=== PATIENT | male | born 1955 | race Caucasian/White ===

== ENCOUNTER → 2017-10-03 | Outpatient (CLI) | payer OTHER ==
[~2017-10-03] MED LIST: LOMOTIL 0.025 M1 TA1 PO; PHENERGAN25 MG RC; VICODIN 5/500 505 MG PO
[2017-10-03 12:32] LABS: HEMATOCRIT 37.9 % (42.0-52.0); HEMOGLOBIN 13.2 g/dl (14.0-18.0); MEAN CELL VOLUME 91.1 fl (80.0-94.0); MEAN CORPUSCULAR HGB 31.7 pg (27.0-31.0); MEAN CORPUSCULAR HGB CONC 34.8 g/dl (33.0-37.0); MEAN PLATELET VOLUME 10.2 fl (9.6-12.3); RED BLOOD COUNT 4.16 10*6/uL (4.50-5.90); RED CELL DISTRI WIDTH 13.4 % (0-14.5); WHITE BLOOD COUNT 7.6 10*3/uL (4.8-10.8)
[2017-10-03 13:01] LABS: ALBUMIN 3.8 gm/dl (3.1-4.5); ALKALINE PHOSPHATASE 149 U/L (45-117); BUN 15 mg/dl (7-24); CHLORIDE 103 mmol/L (98-107); CHOLESTEROL 132 mg/dL (<200); CPK 147 U/L (39-308); CREATININE 1.16 mg/dL (0.70-1.30); HDL CHOLESTEROL 31 mg/dl (40-60); LDL CHOLESTEROL 52 mg/dL (9-159); POTASSIUM 4.7 mmol/L (3.5-5.1); SGOT/AST 11 IU/L (3-35); SGPT/ALT 20 U/L (12-78); SODIUM 137 mmol/L (136-145); TOTAL PROTEIN 7.3 gm/dL (6.4-8.2); TRIGLYCERIDES 244 mg/dl (<150); VLDL CHOLESTEROL 49 mg/dL (6-40)
[2017-10-03 13:20] LABS: VITAMIN D, 25-HYDROXY 17.7 ng/mL (30-100)
== END | disposition home or self-care (01) ==
LOC: LAB 12:07
PROVIDERS: Family Medicine
DX: Z12.5 Encounter for screening for malignant neoplasm of prostate (principal); J44.9 Chronic obstructive pulmonary disease, unspecified; E11.9 Type 2 diabetes mellitus without complications; E55.9 Vitamin D deficiency, unspecified; I10 Essential (primary) hypertension; E78.00 Pure hypercholesterolemia, unspecified; F17.200 Nicotine dependence, unspecified, uncomplicated

== ENCOUNTER → 2018-03-06 | Outpatient (CLI) | payer OTHER ==
[2018-03-06 14:39] LABS: HEMATOCRIT 38.1 % (42.0-52.0); HEMOGLOBIN 12.3 g/dl (14.0-18.0); MEAN CELL VOLUME 96.9 fl (80.0-94.0); MEAN CORPUSCULAR HGB 31.3 pg (27.0-31.0); MEAN CORPUSCULAR HGB CONC 32.3 g/dl (33.0-37.0); MEAN PLATELET VOLUME 10.6 fl (9.6-12.3); RED BLOOD COUNT 3.93 10*6/uL (4.50-5.90); RED CELL DISTRI WIDTH 13.9 % (0-14.5); WHITE BLOOD COUNT 6.8 10*3/uL (4.8-10.8)
[2018-03-06 15:02] LABS: BUN 20 mg/dl (7-24); CHLORIDE 107 mmol/L (98-107); CHOLESTEROL 177 mg/dL (<200); CREATININE 1.32 mg/dL (0.70-1.30); HDL CHOLESTEROL 23 mg/dl (40-60); POTASSIUM 4.5 mmol/L (3.5-5.1); SGOT/AST 12 IU/L (3-35); SGPT/ALT 15 U/L (12-78); SODIUM 140 mmol/L (136-145); TOTAL PROTEIN 7.3 gm/dL (6.4-8.2); TRIGLYCERIDES 486 mg/dl (<150)
[2018-03-06 15:04] LABS: ALKALINE PHOSPHATASE 118 U/L (45-117)
== END | disposition home or self-care (01) ==
LOC: LAB 13:35
PROVIDERS: Family Medicine
DX: E78.00 Pure hypercholesterolemia, unspecified (principal); E11.9 Type 2 diabetes mellitus without complications; I10 Essential (primary) hypertension; E55.9 Vitamin D deficiency, unspecified

== ENCOUNTER → 2018-03-20 | Outpatient (CLI) | payer OTHER | END | disposition home or self-care (01) | LOC: LAB 10:41 | PROVIDERS: Family Medicine | DX: T14.8XXA Other injury of unspecified body region, initial encounter (principal); W57.XXXA Bitten or stung by nonvenomous insect and other nonvenomous arthropods, initial encounter; Y93.89 Activity, other specified; Y92.89 Other specified places as the place of occurrence of the external cause; Y99.8 Other external cause status ==

== ENCOUNTER → 2018-07-24 | Outpatient (CLI) | payer OTHER ==
[2018-07-24 09:58] LABS: HEMATOCRIT 35.4 % (42.0-52.0); HEMOGLOBIN 11.3 g/dl (14.0-18.0); MEAN CELL VOLUME 98.3 fl (80.0-94.0); MEAN CORPUSCULAR HGB 31.4 pg (27.0-31.0); MEAN CORPUSCULAR HGB CONC 31.9 g/dl (33.0-37.0); MEAN PLATELET VOLUME 9.9 fl (9.6-12.3); RED BLOOD COUNT 3.6 10*6/uL (4.50-5.90); RED CELL DISTRI WIDTH 13.9 % (0-14.5); WHITE BLOOD COUNT 6.6 10*3/uL (4.8-10.8)
[2018-07-24 10:27] LABS: ALBUMIN 3.7 gm/dl (3.1-4.5); ALKALINE PHOSPHATASE 125 U/L (45-117); BUN 21 mg/dl (7-24); CHLORIDE 108 mmol/L (98-107); CHOLESTEROL 161 mg/dL (<200); CPK 199 U/L (39-308); CREATININE 1.37 mg/dL (0.70-1.30); HDL CHOLESTEROL 25 mg/dl (40-60); LDL CHOLESTEROL 92 mg/dL (9-159); POTASSIUM 4.5 mmol/L (3.5-5.1); SGOT/AST 15 IU/L (3-35); SGPT/ALT 18 U/L (12-78); SODIUM 142 mmol/L (136-145); TOTAL PROTEIN 7.3 gm/dL (6.4-8.2); TRIGLYCERIDES 218 mg/dl (<150); VLDL CHOLESTEROL 44 mg/dL (6-40)
== END | disposition home or self-care (01) ==
LOC: LAB 09:38
PROVIDERS: Family Medicine
DX: I10 Essential (primary) hypertension (principal); E78.00 Pure hypercholesterolemia, unspecified; E03.9 Hypothyroidism, unspecified; M19.90 Unspecified osteoarthritis, unspecified site; F41.1 Generalized anxiety disorder; E74.00 Glycogen storage disease, unspecified

== ENCOUNTER → 2018-10-31 | Outpatient (CLI) | payer OTHER ==
[2018-11-01 09:07] LABS: RHEUMATOID ARTHRITIS FACTOR 10.2 IU/mL (0.0-13.9)
== END | disposition home or self-care (01) ==
LOC: LAB 12:01
PROVIDERS: Family Medicine
DX: M19.90 Unspecified osteoarthritis, unspecified site (principal); E78.00 Pure hypercholesterolemia, unspecified

== ENCOUNTER → 2019-01-15 | Outpatient (CLI) | payer OTHER ==
[2019-01-15 12:21] LABS: MEAN CORPUSCULAR HGB 32.4 pg (27.0-31.0); MEAN CORPUSCULAR HGB CONC 32.4 g/dl (33.0-37.0); MEAN PLATELET VOLUME 10.9 fl (9.6-12.3); RED BLOOD COUNT 3.4 10*6/uL (4.50-5.90); RED CELL DISTRI WIDTH 13.5 % (0-14.5); WHITE BLOOD COUNT 7.2 10*3/uL (4.8-10.8)
[2019-01-15 12:37] LABS: ALBUMIN 3.7 gm/dl (3.1-4.5); CREATININE 1.57 mg/dL (0.70-1.30); POTASSIUM 4.9 mmol/L (3.5-5.1)
== END | disposition home or self-care (01) ==
LOC: LAB 11:13
PROVIDERS: Family Medicine
DX: E78.00 Pure hypercholesterolemia, unspecified (principal); E11.9 Type 2 diabetes mellitus without complications; I10 Essential (primary) hypertension; E55.9 Vitamin D deficiency, unspecified; M19.90 Unspecified osteoarthritis, unspecified site

== ENCOUNTER 2019-05-28 10:49 | Inpatient (IN) | payer OTHER ==
[2019-05-28] VITALS (8 sets, daily range): BP systolic 111–159; BP diastolic 57–73
[~2019-05-28] VITALS: Ht 182.8 cm; Wt 116.4 kg
[2019-05-28 11:11] LABS: BASO # 0.1 10*3/uL (0.0-0.1); BASO % 0.8 % (0.0-1.0); EOS # 0.1 10*3/uL (0.0-0.4); EOS % 1.9 % (1.0-4.0); HEMATOCRIT 33.8 % (42.0-52.0); HEMOGLOBIN 11.1 g/dl (14.0-18.0); LYMPH # 2.3 10*3/uL (1.3-4.4); LYMPH % 31.7 % (27.0-41.0); MEAN CELL VOLUME 99.1 fl (80.0-94.0); MEAN CORPUSCULAR HGB 32.6 pg (27.0-31.0); MEAN CORPUSCULAR HGB CONC 32.8 g/dl (33.0-37.0); MEAN PLATELET VOLUME 11.2 fl (9.6-12.3); MONO # 0.7 10*3/uL (0.1-1.0); NEUT # 4.1 10*3/uL (2.3-7.9); NEUT % 56.1 % (47.0-73.0); PLATELET COUNT AUTOMATED 152 10*3/uL (130-400); RED BLOOD COUNT 3.41 10*6/uL (4.50-5.90); WHITE BLOOD COUNT 7.4 10*3/uL (4.8-10.8)
[2019-05-28 11:27] LABS: ACT PARTIAL THROMBO TIME 25.3 SECONDS (20.0-32.1); INTERNATIONAL NORM RATIO 0.9 (2.0-3.5)
[2019-05-28 11:29] LABS: ALBUMIN 4.1 gm/dl (3.1-4.5); ALKALINE PHOSPHATASE 121 U/L (45-117); BUN 27 mg/dl (7-24); CHLORIDE 109 mmol/L (98-107); CREATININE 1.57 mg/dL (0.70-1.30); POTASSIUM 4.1 mmol/L (3.5-5.1); SGOT/AST 12 IU/L (3-35); SGPT/ALT 18 U/L (12-78); SODIUM 138 mmol/L (136-145); TOTAL PROTEIN 7.4 gm/dL (6.4-8.2)
[2019-05-28 11:30] LABS: TROPONIN I < 0.015 ng/ml (<0.045)
--- NOTE | 2019-05-28 14:14 | NUR ---
A 63, admitted to , under the services of Dr. BETHANY CESPEDES,N[place] Silverman with a diagnosis of CHEST PAIN. Chief complaint is CHEST PAIN FOR 2 DAYS BUT NONE TODAY & MAINLY FEELING TIRED. WORKED UNTIL 11PM LAST NIGHT & STAYED UP UNTIL 3AM, HAS BEEN BOUNCING SHIFTS AT WORK. ALSO HAS C/O UPPER QUAD CRAMPS THAT COME ON WITH MOVEMENT. . Patient arrived via stretcher from ER. Monitor applied. Initial assessment completed. Vital signs taken and recorded. DR. BETHANY CESPEDES,N[place] Silverman notified of admission to the unit. Orders received. See assessment for past medical history, medications and allergies. Patient and/or family oriented to unit. [facility] visitation policy reviewed. Clothing/patient valuable form completed. LESLIE IVAN
[2019-05-28] MEDS ORDERED: NOVOLIN 70100 UNIT/2 SQ ×2 (14:28→14:29)
[2019-05-28] MEDS ORDERED: NEURONTIN300 MG PO (14:30)
[2019-05-28] MEDS ORDERED: ZESTORETIC 20-1 EACH PO (14:31)
[2019-05-28] MEDS ORDERED: ZYLOPRIM100 MG PO (14:32)
[2019-05-28] MEDS ORDERED: OMEPRAZOLE40 MG PO (14:33)
[2019-05-28] MEDS ORDERED: TOPROL XL50 M1 PO (14:34)
[2019-05-28] MEDS ORDERED: CITALOPRAM20 MG PO (14:35)
[2019-05-28] MEDS ORDERED: TOPAMAX50 MG PO (14:36)
[2019-05-28] MEDS ORDERED: COREG3.125 MG PO (15:08)
[2019-05-28] MEDS ORDERED: VITAMIN D-32000 UNI1 PO (15:10)
[2019-05-28] MEDS ORDERED: ASPIRIN CHEWABL81 MG PO (15:11)
--- NOTE | 2019-05-28 15:11 | NUR ---
MEDS VERIFIED VIA PHARMACY & WITH AFTER GOING THROUGH IT WITH PATIENT
--- NOTE | 2019-05-28 15:30 | NUR ---
DR SIMS CALLED WITH ADMISSION ASSESSMENT - ORDERS RECEIVED
[2019-05-29] VITALS: BP 152/61
--- NOTE | 2019-05-29 03:50 | NUR ---
PT LYING IN BED, EYES CLOSED AND SLEEPING. RESPIRATIONS EASY AND UNLABORED. SAFETY MEASURES IN PLACE, CALL LIGHT IN REACH.
[2019-05-29 06:09] LABS: BASO % 0.5 % (0.0-1.0); EOS # 0.2 10*3/uL (0.0-0.4); EOS % 2.3 % (1.0-4.0); HEMOGLOBIN 11.3 g/dl (14.0-18.0); LYMPH # 2.3 10*3/uL (1.3-4.4); LYMPH % 30.9 % (27.0-41.0); MEAN CELL VOLUME 99.7 fl (80.0-94.0); MEAN CORPUSCULAR HGB 32.2 pg (27.0-31.0); MEAN CORPUSCULAR HGB CONC 32.3 g/dl (33.0-37.0); MONO # 0.6 10*3/uL (0.1-1.0); MONO % 7.8 % (3.0-9.0); NEUT # 4.3 10*3/uL (2.3-7.9); NEUT % 58.1 % (47.0-73.0); PLATELET COUNT AUTOMATED 158 10*3/uL (130-400); RED BLOOD COUNT 3.51 10*6/uL (4.50-5.90); RED CELL DISTRI WIDTH 13.9 % (0-14.5); WHITE BLOOD COUNT 7.4 10*3/uL (4.8-10.8)
[2019-05-29 06:30] LABS: CREATININE 1.45 mg/dL (0.70-1.30); POTASSIUM 4.7 mmol/L (3.5-5.1)
--- NOTE | 2019-05-29 09:00 | NUR ---
PATIENT ASSESSMENT COMPLETE AT THIS TIME. PT DENIES ANY SOB OR CHEST PAIN. BLOOD PRESSURE WNL. NO NEW ABNORMALITIES NOTED. WILL CATCH PATIENT UP ON MEDICATIONS WHEN HE RETURNS TO FLOOR FROM STRESS TEST. PT DENIES NEEDING ANYTHING AT THIS TIME. ALL SAFETY MEASURES IN PLACE. CALL LIGHT IN REACH.
[2019-05-29 09:07] VITALS: BP 122/58
--- NOTE | 2019-05-29 09:30 | NUR ---
INFORMED CONSENT OBTAINED FOR A LEXISCAN STRESS TEST WITH DR. SIMS. RESTING EKG NSR, WITH A HT RT OF 77 AND A BP OF 120/68. CLEAR BREAH SOUNDS, POX 96% REYNA. COMPLETED ONE MINUTE OF A LEXISCAN PROTOCOL RECEIVING LEXISCAN 0.4 MG OVER 10 SECONDS. NO SYMPTOMS VOICED. TOLERATED WELL. HAD A PEAK HT RT OF 84, WITH A BP OF 112/50. LAST RECOVERY HT RT OF 86, WITH A BP OF 118/54. AWAITING NUCLEAR IMAGING IN STABLE CONDITION.
--- NOTE | 2019-05-29 09:40 | NUR ---
PATIENT OFF OF FLOOR AT THIS TIME FOR STRESS TEST.
[2019-05-29] MEDS ORDERED: ROPINIROLE HYD0.5 MG PO (10:26)
[2019-05-29 11:43] VITALS: BP 142/60
[2019-05-29 12:00] VITALS: BP 125/57
--- NOTE | 2019-05-29 12:00 | NUR ---
Spray Unit Feeder in to talk to patient. Patient states lives at home with his . There are 2 steps in the home. Physician: Dr. Lenny Gonsales [facility]acy: [facility] Home health services: none Patient's level of ADLs: INDEPENDENT Patient has working utilities: yes DME: none Follow-up physician's appointment after d/c: he prefers to make his own follow up appt after discharge Does patient want to access PORTAL?: no Discharge plan discussed with patient and who is at the bedside. He lives at home with his . He is independent in his ADLs and ambulation. Discussed home health care services and he denies any home needs at this time. When medically stable he will be discharged to home. ANA EDMONDS
--- NOTE | 2019-05-29 14:00 | NUR ---
CALLED [facility] FOR UPDATES ON PATIENT'S STRESS TEST RESULTS. STRESS TEST HAS NOT BEEN READ YET BY DR LINDO.
--- NOTE | 2019-05-29 15:45 | NUR ---
PT COMES TO NURSE STATION AND STATES THAT PATIENT IS READY TO GO AND NEEDS HIS IV TAKEN OUT. PT IS NOTIFIED THAT I AM GOING TO CALL DR SIMS TO ASK IF PATIENT CAN BE PROPERLY DISCHARGED RATHER THAN LEAVE AGAINST MEDICAL ADVICE. PT SAYS OKAY AND GOES BACK TO PATIENT'S ROOM.
--- NOTE | 2019-05-29 15:50 | NUR ---
DR SIMS NOTIFIED THAT PATIENT WANTS TO LEAVE AND GIVES ORDERS TO CALL DR LINDO AND ASK HIM TO READ STRESS REPORT SO THAT PATIENT CAN BE DISCHARGED HOME. DR LINDO NOTIFIED AND STATES THAT HE WILL READ STRESS TEST AND HAVE REPORT READY IN 5-10 MINUTES. WILL NOTIFY PATIENT.
[2019-05-29 16:00] VITALS: BP 130/58
--- NOTE | 2019-05-29 16:02 | NUR ---
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 IT APPEARS THAT PATIENT HAS LEFT FACILITY WITHOUT SIGNING PROPER PAPERWORK. TRASH CANS ARE SEARCHED FOR PATIENT'S IV CATHETER BUT CATHETER IS NOT FOUND. INPATIENT DIRECTOR AND NURSING ROPE TOW OPERATOR NOTIFIED. AN ATTEMPT IS MADE TO TRY TO CONTACT PATIENT TO ASK IF IV CATHETER HAS BEEN PROPERLY REMOVED BUT NO THERE IS NO ANSWER. WILL FOLLOW UP WITH APPROPRIATE ACTIONS PER POLICY.
--- NOTE | 2019-05-29 16:28 | NUR ---
NOTIFIED [place] [employer] THAT PATIENT HAS LEFT FACILITY WITH IV ACCESS.
--- NOTE | 2019-05-29 16:36 | NUR ---
PT HAS LEFT AGAINST MEDICAL ADVICE AND WITHOUT SIGNING APPROPRIATE PAPERWORK.
== END 2019-05-29 16:36 | disposition left against medical advice (07) | DRG 392 ==
LOC: ED 10:49 → 5E 14:00 → EDHOLD 14:00 → 5E 14:01
PROVIDERS: Emergency Medicine; ADMIT Internal Medicine
PROC: 4A02XM4 Measurement of Cardiac Total Activity, External Approach (ICD-10-PCS; principal; 2019-05-29)
PROC: 3E073KZ Introduction of Other Diagnostic Substance into Coronary Artery, Percutaneous Approach (ICD-10-PCS; 2019-05-29)
DX: K21.0 Gastro-esophageal reflux disease with esophagitis (principal); F33.0 Major depressive disorder, recurrent, mild; R07.89 Other chest pain; I10 Essential (primary) hypertension; M1A.9XX0 Chronic gout, unspecified, without tophus (tophi); Z53.21 Procedure and treatment not carried out due to patient leaving prior to being seen by health care provider; E11.9 Type 2 diabetes mellitus without complications; E66.9 Obesity, unspecified; Z87.11 Personal history of peptic ulcer disease; Z68.35 Body mass index [BMI] 35.0-35.9, adult

== ENCOUNTER 2019-07-19 18:18 | Emergency (ER) | payer OTHER ==
[~2019-07-19] VITALS: Ht 182.8 cm; Wt 108.9 kg
[~2019-07-19 18:18] MED LIST changes: +ASPIRIN CHEWABL81 MG PO; +CITALOPRAM20 MG PO; +COREG3.125 MG PO; +NEURONTIN300 MG PO; +NOVOLIN 70100 UNIT/2 SQ; +OMEPRAZOLE40 MG PO; +ROPINIROLE HYD0.5 MG PO; +TOPAMAX50 MG PO; +TOPROL XL50 M1 PO; +VITAMIN D-32000 UNI1 PO; +ZESTORETIC 20-1 EACH PO; +ZYLOPRIM100 MG PO
[2019-07-19] MEDS ORDERED: NORCO 5-325 TA1 EACH PO (19:33)
== END 2019-07-19 20:00 | disposition home or self-care (01) ==
LOC: ED 18:18
DX: S82.832A Other fracture of upper and lower end of left fibula, initial encounter for closed fracture (principal); E11.9 Type 2 diabetes mellitus without complications; I10 Essential (primary) hypertension; K21.9 Gastro-esophageal reflux disease without esophagitis; M79.671 Pain in right foot; Z79.899 Other long term (current) drug therapy; Z79.82 Long term (current) use of aspirin; Z79.4 Long term (current) use of insulin; X50.1XXA Overexertion from prolonged static or awkward postures, initial encounter; Y93.89 Activity, other specified; Y92.89 Other specified places as the place of occurrence of the external cause; Y99.0 Civilian activity done for income or pay

== ENCOUNTER → 2019-07-22 | Outpatient (CLI) | payer OTHER ==
[~2019-07-22] MED LIST changes: +CARAFATE1 G1 PO; +NORCO 5-325 TA1 EACH PO
== END | disposition home or self-care (01) ==
LOC: US 12:59
DX: R60.0 Localized edema (principal)

== ENCOUNTER 2019-07-26 12:46 | Inpatient (IN) | payer OTHER ==
[~2019-07-26] VITALS: Ht 182.8 cm; Wt 112.2 kg
[~2019-07-26 12:46] MED LIST changes: -CARAFATE1 G1 PO
[2019-07-26 12:48] VITALS: BP 190/80
[2019-07-26 13:23] LABS: BASO % 0.3 % (0.0-1.0); HEMATOCRIT 34.6 % (42.0-52.0); HEMOGLOBIN 11.7 g/dl (14.0-18.0); LYMPH # 1.4 10*3/uL (1.3-4.4); LYMPH % 15.9 % (27.0-41.0); MEAN CELL VOLUME 95.3 fl (80.0-94.0); MEAN CORPUSCULAR HGB 32.2 pg (27.0-31.0); MEAN CORPUSCULAR HGB CONC 33.8 g/dl (33.0-37.0); MEAN PLATELET VOLUME 10.7 fl (9.6-12.3); MONO # 0.5 10*3/uL (0.1-1.0); MONO % 5.8 % (3.0-9.0); NEUT # 6.9 10*3/uL (2.3-7.9); NEUT % 77.6 % (47.0-73.0); PLATELET COUNT AUTOMATED 286 10*3/uL (130-400); RED BLOOD COUNT 3.63 10*6/uL (4.50-5.90); RED CELL DISTRI WIDTH 13.6 % (0-14.5); WHITE BLOOD COUNT 8.9 10*3/uL (4.8-10.8)
--- NOTE | 2019-07-26 13:41 | NUR ---
NOTIFIED BY LAB PTSD LACTIC ACID 2.6. [place] DNP NOTIFIED.
[2019-07-26 13:44] LABS: ALBUMIN 3.8 gm/dl (3.1-4.5); CREATININE 1.72 mg/dL (0.70-1.30); POTASSIUM 4.6 mmol/L (3.5-5.1); TOTAL PROTEIN 7.5 gm/dL (6.4-8.2)
[2019-07-26 13:48] LABS: TROPONIN I 0.11 ng/ml (<0.045)
[2019-07-26 13:58] LABS: ACT PARTIAL THROMBO TIME 22.1 SECONDS (20.0-32.1)
--- NOTE | 2019-07-26 13:58 | NUR ---
PT STATES NAUSEA HAS RESOLVED.
[2019-07-26 14:26] VITALS: BP 186/80
[2019-07-26 15:16] VITALS: BP 184/78
[2019-07-26 15:40] VITALS: BP 188/88
[2019-07-26 16:00] VITALS: BP 190/84
--- NOTE | 2019-07-26 17:44 | NUR ---
DR. DE LEON NOTIFIED OF CONSULT
--- NOTE | 2019-07-26 17:44 | NUR ---
DR. XIAO NOTIFIED OF CONSULT
[2019-07-26] MEDS ORDERED: CARAFATE1 G1 PO ×2 (17:49)
[2019-07-26 20:00] VITALS: BP 137/69
--- NOTE | 2019-07-26 21:15 | NUR ---
NOTIFIED DR REED OF TROPONIN OF 0.171. STATED TO LET CARDIOLOGY KNOW.
--- NOTE | 2019-07-26 21:18 | NUR ---
NOTIFIED DR DE LEON OF TROPONIN RESULT. NO NEW ORDERS RECIEVED AT THIS TIME.
--- NOTE | 2019-07-26 21:59 | NUR ---
HEPARIN DRIP INCREASED 2 UNITS/KG/H. RUNNING AT 12ML/H. APTT WAS 30.2
[2019-07-27] VITALS: BP 145/66
--- NOTE | 2019-07-27 00:43 | NUR ---
PATIENT COMPLAINS OF 8/10 FOOT PAIN. MEDICATED PER ORDER. WILL CONTINUE TO MONITOR FOR RELIEF. VOICES NO OTHER CONCERNS AT THIS TIME. RESTING IN BED. CALL LIGHT WITHIN REACH
--- NOTE | 2019-07-27 00:52 | NUR ---
24 HR chart check completed.
--- NOTE | 2019-07-27 01:12 | NUR ---
DILAUDID EFFECTIVE PER PT
[2019-07-27 04:04] LABS: BASO % 0.3 % (0.0-1.0); EOS # 0.1 10*3/uL (0.0-0.4); EOS % 0.9 % (1.0-4.0); HEMATOCRIT 28.7 % (42.0-52.0); HEMOGLOBIN 9.5 g/dl (14.0-18.0); LYMPH # 3.2 10*3/uL (1.3-4.4); LYMPH % 33.1 % (27.0-41.0); MEAN CORPUSCULAR HGB 32.1 pg (27.0-31.0); MEAN CORPUSCULAR HGB CONC 33.1 g/dl (33.0-37.0); MEAN PLATELET VOLUME 9.9 fl (9.6-12.3); MONO # 0.7 10*3/uL (0.1-1.0); MONO % 7.6 % (3.0-9.0); NEUT # 5.5 10*3/uL (2.3-7.9); NEUT % 57.7 % (47.0-73.0); PLATELET COUNT AUTOMATED 232 10*3/uL (130-400); RED BLOOD COUNT 2.96 10*6/uL (4.50-5.90); RED CELL DISTRI WIDTH 13.5 % (0-14.5); WHITE BLOOD COUNT 9.6 10*3/uL (4.8-10.8)
--- NOTE | 2019-07-27 04:23 | NUR ---
APTT 30.2. HEPARIN ADJUSTED ACCORDINGLY
--- NOTE | 2019-07-27 06:49 | NUR ---
PT COMPLAINS OF 8/10 FOOT PAIN. MEDICATED PER ORDER. WILL MONITOR FOR RELIEF. VOICES NO OTHER CONCERNS AT THIS TIME. RESTING IN BED. CALL LIGHT WITHIN REACH
[2019-07-27 08:00] VITALS: BP 140/62
--- NOTE | 2019-07-27 08:33 | NUR ---
PT RESTING IN BED. NO DISTRESS NOTED. WILL MONITOR
[2019-07-27 12:00] VITALS: BP 118/64
[2019-07-27 12:06] LABS: BILIRUBIN NEGATIVE (NEGATIVE); BLOOD TRACE-INTACT (NEGATIVE); CLARITY SL CLOUDY (CLEAR); COLOR YELLOW (YELLOW); GLUCOSE NEGATIVE (NEGATIVE); KETONE NEGATIVE (NEGATIVE); LEUKO ESTERASE NEGATIVE (NEGATIVE); NITRITE NEGATIVE (NEGATIVE); SPECIFIC GRAVITY 1.025 (1.005-1.030); UROBILINOGEN 0.2 E.U./dl (0.2-1.0)
[2019-07-27 12:17] LABS: BACTERIA 3+
--- NOTE | 2019-07-27 13:16 | NUR ---
DILAUDID GIVEN REQUESTED BY PT. PT RATES LE PAIN 04/19 WILL MONITOR
[2019-07-27 16:00] VITALS: BP 125/62
--- NOTE | 2019-07-27 16:09 | NUR ---
PT STATES THAT ELOY HELPED WILL MONITOR
[2019-07-27 17:18] LABS: CREATININE 1.56 mg/dL (0.70-1.30); POTASSIUM 4.2 mmol/L (3.5-5.1)
[2019-07-27 20:00] VITALS: BP 138/73
--- NOTE | 2019-07-27 20:10 | NUR ---
PT COMPLAINS OF PAIN. MEDICATED PER ORDER. WILL CONTINUE TO MONITOR FOR RELIEF. VOICES NO OTHER CONCERNS AT THIS TIME. RESTING IN BED. CALL LIGHT WITHIN REACH
--- NOTE | 2019-07-27 20:40 | NUR ---
Hep Locks discontinued. Sites asymptomatic. Pressure applied. Sterile dressings applied. LISA MACHADO
--- NOTE | 2019-07-27 20:40 | NUR ---
IV started left forearm with #22 protective cath after 1 attempts. Site prepped with Chloroprep. Sterile dressing applied. Patient tolerated procedure well. LISA MACHADO
--- NOTE | 2019-07-27 21:52 | NUR ---
DILAUDID EFFECTIVE PER PT
--- NOTE | 2019-07-27 21:55 | NUR ---
PT COMPLAING OF 5/10 ACHING CHEST PAIN THAT DOES NOT RADIATE AFTER MAGNESIUM SULFATE IV ADMINISTRATION. WILL NOTIFY DR REED.
--- NOTE | 2019-07-27 22:03 | NUR ---
NOTFIFED DR REED. STATED TO ORDER MAGNESIUM OXIDE 400MG PO BID.
--- NOTE | 2019-07-27 23:00 | NUR ---
PATIENT CURRENTLY DENIES ANY FURTHER EPISODES OF CHEST DISCOMFORT. STATED THE MEDICINE DR REED ORDERED "HELPED ALOT AND THE BURNING FEELING IS ALL GONE". WILL CONTINUE TO MONITOR.
--- NOTE | 2019-07-27 23:01 | NUR ---
24 HR chart check completed.
[2019-07-28] VITALS (7 sets, daily range): BP systolic 116–153; BP diastolic 46–78
--- NOTE | 2019-07-28 00:45 | NUR ---
Patient resting quietly with no c/o discomfort. Respirations easy and regular. Vital signs stable. No overt distress. States he no longer has any chest discomfort. Call light within reach. HISADM,LISA
--- NOTE | 2019-07-28 04:08 | NUR ---
Patient sleeping. Respirations relaxed and easy. Siderails up . [place] on. CALL LIGHT WITHIN REACH HISSOM,LISA
--- NOTE | 2019-07-28 06:19 | NUR ---
BLOOD SUGAR 128
--- NOTE | 2019-07-28 08:21 | NUR ---
OFFICE NOTIFIED OF CONSULT.
--- NOTE | 2019-07-28 08:36 | NUR ---
PT REQUESTED AND RECEIVED IV DILAUDID SLOWLY PER PRN ORDER FOR C/O LEFT FOOT PAIN. RATES PAIN 03/19. WILL MONITOR EFFECTIVENESS. VSS. CALL LIGHT WITHIN REACH.
--- NOTE | 2019-07-28 08:40 | NUR ---
IN TO SEE PATIENT.
--- NOTE | 2019-07-28 09:15 | NUR ---
PAIN BEING SLIGHTLY RELIEVED PER PT. WILL CONTINUE TO MONITOR.
[2019-07-28 09:42] LABS: BASO % 0.4 % (0.0-1.0); EOS # 0.2 10*3/uL (0.0-0.4); EOS % 2.2 % (1.0-4.0); HEMATOCRIT 29.8 % (42.0-52.0); HEMOGLOBIN 9.9 g/dl (14.0-18.0); LYMPH % 26.7 % (27.0-41.0); MEAN CELL VOLUME 96.1 fl (80.0-94.0); MEAN CORPUSCULAR HGB 31.9 pg (27.0-31.0); MEAN CORPUSCULAR HGB CONC 33.2 g/dl (33.0-37.0); MEAN PLATELET VOLUME 9.8 fl (9.6-12.3); MONO # 0.6 10*3/uL (0.1-1.0); MONO % 8.3 % (3.0-9.0); NEUT # 4.6 10*3/uL (2.3-7.9); PLATELET COUNT AUTOMATED 252 10*3/uL (130-400); RED CELL DISTRI WIDTH 13.6 % (0-14.5); WHITE BLOOD COUNT 7.3 10*3/uL (4.8-10.8)
[2019-07-28 10:07] LABS: BUN 21 mg/dl (7-24); CHLORIDE 108 mmol/L (98-107); POTASSIUM 4.1 mmol/L (3.5-5.1); SODIUM 140 mmol/L (136-145)
[2019-07-28 10:10] LABS: CREATININE 1.33 mg/dL (0.70-1.30)
--- NOTE | 2019-07-28 10:30 | NUR ---
Machine Preservative Filler in to talk to patient. Patient states lives at home with his . There are 2 steps in the home. Physician: Dr. Lenny Gonsales [facility] [place] Home health services: none Patient's level of ADLs: MINIMAL ASSIST Patient has working utilities: yes DME: crutches Follow-up physician's appointment after d/c: he prefers to make his own follow up apt after discharge Does patient want to access PORTAL?: no Discharge plan discussed with patient. He lives at home with his . He is independent in his ADLs and uses crutches for ambulation. Discussed home health care services and he denies any home needs at this time. He states the plan is to transfer him to [place] in the morning for a heart cath. His is at the bedside. ANA EDMONDS
--- NOTE | 2019-07-28 13:30 | NUR ---
IN TO SEE PATIENT.
--- NOTE | 2019-07-28 14:17 | NUR ---
PATIENT OFF FLOOR FOR SCHEDULED U/S.
--- NOTE | 2019-07-28 14:50 | NUR ---
PT MEDICATED WITH IV DILAUDID PER PRN ORDER FOR C/O LEFT ANKLE PAIN. RATES PAIN 05/20. WILL MONITOR EFFECTIVENESS.
--- NOTE | 2019-07-28 17:10 | NUR ---
IN TO SEE PATIENT.
--- NOTE | 2019-07-28 19:52 | NUR ---
PATIENT REQUESTING PAIN MEDICATION FOR LEFT FOOT/ANKLE PAIN RATED 7/10 ON 0/10 SCALE. DILAUDID ADMINISTERED PRESCRIBED. WILL MONITOR FOR EFFECTIVENESS.
--- NOTE | 2019-07-28 19:55 | NUR ---
PATIENT SITTING IN BED TALKING ON PHONE. PATIENT C/O LEFT ANKLE PAIN- PAIN MEDICATION GIVEN. LEFT LEG IN SOFT CAST. PATIENT UNDERSTANDS THAT HE IS BEING TRANSFERED TO [place] IN MORNING FOR HEART CATH AND PATIENT IS NOT TO EAT OR DRINK AFTER MIDNIGHT. PATIENT HAS NO COMPLAINTS AT THIS TIME. CALL LIGHT WITHIN REACH. WILL MONITOR.
--- NOTE | 2019-07-28 20:52 | NUR ---
PATIENT STATES THAT DILAUDID WAS EFFECTIVE FOR LEFT ANKLE PAIN, RATES 4/10 ON 0/10 AT THIS TIME. WILL MONITOR.
--- NOTE | 2019-07-28 23:49 | NUR ---
24 HR chart check completed.
--- NOTE | 2019-07-28 23:54 | NUR ---
PATIENT REQUESTING PAIN MEDICATION FOR LEFT ANKLE/FOOT PAIN RATED 8/10 ON 0/10 SCALE. DILAUDID ADMINISTERED PRESCRIBED. WILL MONITOR FOR EFFECTIVENESS.
[2019-07-29] VITALS: BP 138/70
--- NOTE | 2019-07-29 04:04 | NUR ---
PATIENT REQUESTING PAIN MEDICATION FOR LEFT ANKLE PAIN RATED 8/10 ON 0/10 SCALE. DILAUDID ADMINISTERED PRESCRIBED. WILL MONITOR FOR EFFECTIVENESS.
--- NOTE | 2019-07-29 05:04 | NUR ---
PATIENT RESTING WITH EYES CLOSED AT THIS TIME.RESPIRATIONS EASY AND UNLABORED.CALL LIGHT WITHIN REACH.
--- NOTE | 2019-07-29 05:40 | NUR ---
PATIENT AWAKE AND ALET, SITTING IN BED WATCHING TV. PATIENT HAS NO COMPLAINTS AT THIS TIME. DOES STATE THAT HE IS HAVING SOME PAIN IN LEFT ANKLE, RATED 4/10 AT THIS TIME. WILL CONTINUE TO MONITOR.
--- NOTE | 2019-07-29 07:32 | NUR ---
IV started left forearm with #22 protective cath after 1 attempts. Site prepped with Chloroprep. Sterile dressing applied. Patient tolerated procedure well. PATIENT LEAVING WITH [facility] TO [place] FOR HEART CATH. DILAUDED GIVEN PRIOR TO LEAVING FOR C/O LEFT FOOT [PAIN 7 DILAUDED LESLIE VÁSQUEZ
[2019-07-29 07:34] VITALS: BP 126/78
== END 2019-07-29 07:34 | disposition other institution (70) | DRG 203 ==
LOC: ED 12:46 → EDHOLD 14:18 → 5E 14:18
PROVIDERS: Internal Medicine Nephrology; Nurse Practitioner Family; ADMIT Internal Medicine
DX: M94.0 Chondrocostal junction syndrome [Tietze] (principal); N17.0 Acute kidney failure with tubular necrosis; I21.9 Acute myocardial infarction, unspecified; S82.432A Displaced oblique fracture of shaft of left fibula, initial encounter for closed fracture; E87.2 Acidosis; E83.42 Hypomagnesemia; R07.9 Chest pain, unspecified; E11.22 Type 2 diabetes mellitus with diabetic chronic kidney disease; I12.9 Hypertensive chronic kidney disease with stage 1 through stage 4 chronic kidney disease, or unspecified chronic kidney disease; E87.1 Hypo-osmolality and hyponatremia; W18.30XA Fall on same level, unspecified, initial encounter; N18.3 Chronic kidney disease, stage 3 (moderate); E11.42 Type 2 diabetes mellitus with diabetic polyneuropathy; Z82.49 Family history of ischemic heart disease and other diseases of the circulatory system; Z79.82 Long term (current) use of aspirin; Z79.4 Long term (current) use of insulin; Y93.89 Activity, other specified; Y92.89 Other specified places as the place of occurrence of the external cause; Y99.8 Other external cause status

== ENCOUNTER → 2019-10-08 | Outpatient (CLI) | payer OTHER ==
[~2019-10-08] MED LIST changes: +CARAFATE1 G1 PO
[2019-10-08 10:17] LABS: HEMATOCRIT 33.9 % (42.0-52.0); HEMOGLOBIN 10.8 g/dl (14.0-18.0); MEAN CELL VOLUME 98.3 fl (80.0-94.0); MEAN CORPUSCULAR HGB 31.3 pg (27.0-31.0); MEAN CORPUSCULAR HGB CONC 31.9 g/dl (33.0-37.0); RED BLOOD COUNT 3.45 10*6/uL (4.50-5.90); RED CELL DISTRI WIDTH 13.7 % (0-14.5); WHITE BLOOD COUNT 7.5 10*3/uL (4.8-10.8)
[2019-10-08 10:44] LABS: ALKALINE PHOSPHATASE 155 U/L (45-117); BUN 20 mg/dl (7-24); CHLORIDE 110 mmol/L (98-107); CREATININE 1.42 mg/dL (0.70-1.30); POTASSIUM 4.4 mmol/L (3.5-5.1); SGOT/AST 9 IU/L (3-35); SGPT/ALT 22 U/L (12-78); SODIUM 140 mmol/L (136-145); TOTAL PROTEIN 7.6 gm/dL (6.4-8.2)
[2019-10-08 11:35] LABS: VITAMIN D, 25-HYDROXY 42.2 ng/mL (30-100)
== END | disposition home or self-care (01) ==
LOC: LAB 09:30
PROVIDERS: Family Medicine
DX: D64.9 Anemia, unspecified (principal); E55.9 Vitamin D deficiency, unspecified; E74.9 Disorder of carbohydrate metabolism, unspecified; R53.83 Other fatigue

== ENCOUNTER 2020-01-27 18:07 | Inpatient (IN) | payer OTHER ==
[~2020-01-27] VITALS: Ht 182.8 cm; Wt 120.0 kg
[2020-01-27 18:12] VITALS: BP 145/67
[2020-01-27 18:59] LABS: BASO % 0.4 % (0.0-1.0); EOS # 0.2 10*3/uL (0.0-0.4); EOS % 2.5 % (1.0-4.0); HEMATOCRIT 31.1 % (42.0-52.0); LYMPH # 2.3 10*3/uL (1.3-4.4); LYMPH % 34.6 % (27.0-41.0); MEAN CELL VOLUME 98.4 fl (80.0-94.0); MEAN CORPUSCULAR HGB CONC 32.5 g/dl (33.0-37.0); MEAN PLATELET VOLUME 10.1 fl (9.6-12.3); MONO # 0.4 10*3/uL (0.1-1.0); MONO % 6.4 % (3.0-9.0); NEUT # 3.7 10*3/uL (2.3-7.9); NEUT % 55.5 % (47.0-73.0); PLATELET COUNT AUTOMATED 189 10*3/uL (130-400); RED BLOOD COUNT 3.16 10*6/uL (4.50-5.90); RED CELL DISTRI WIDTH 13.5 % (0-14.5); WHITE BLOOD COUNT 6.7 10*3/uL (4.8-10.8)
[2020-01-27 19:09] LABS: ACT PARTIAL THROMBO TIME 25.6 SECONDS (20.0-32.1)
[2020-01-27 19:16] LABS: ALBUMIN 3.5 gm/dl (3.1-4.5); ALKALINE PHOSPHATASE 124 U/L (45-117); BUN 33 mg/dl (7-24); CHLORIDE 111 mmol/L (98-107); CREATININE 2.12 mg/dL (0.70-1.30); LIPASE 157 U/L (73-393); POTASSIUM 5.7 mmol/L (3.5-5.1); SGOT/AST 13 IU/L (3-35); SGPT/ALT 22 U/L (12-78); SODIUM 137 mmol/L (136-145); TOTAL PROTEIN 6.6 gm/dL (6.4-8.2)
[2020-01-27 19:19] LABS: TROPONIN I < 0.015 ng/ml (<0.045)
[2020-01-27 19:40] VITALS: BP 123/56
[2020-01-27 20:39] VITALS: BP 120/52
[2020-01-27 21:00] VITALS: BP 147/58
[2020-01-27] MEDS ORDERED: HUMALOG 751 UNIT/0.0 SC (21:59)
[2020-01-27] MEDS ORDERED: ZESTORETIC 20-1 EACH PO (22:01)
[2020-01-27] MEDS ORDERED: IRON18 MG PO (22:04)
[2020-01-28] VITALS: BP 129/61
[2020-01-28 00:13] LABS: BILIRUBIN NEGATIVE (NEGATIVE); BLOOD NEGATIVE (NEGATIVE); CLARITY CLEAR (CLEAR); COLOR YELLOW (YELLOW); GLUCOSE 3+ (NEGATIVE); KETONE NEGATIVE (NEGATIVE); LEUKO ESTERASE NEGATIVE (NEGATIVE); NITRITE NEGATIVE (NEGATIVE); UROBILINOGEN 0.2 E.U./dl (0.2-1.0)
[2020-01-28 00:18] LABS: BACTERIA TRACE; WBC 0-2 wbc/hpf (0-5)
[2020-01-28 07:49] LABS: BASO % 0.7 % (0.0-1.0); EOS # 0.2 10*3/uL (0.0-0.4); EOS % 2.9 % (1.0-4.0); HEMATOCRIT 31.3 % (42.0-52.0); LYMPH # 2.2 10*3/uL (1.3-4.4); MEAN CELL VOLUME 99.1 fl (80.0-94.0); MEAN CORPUSCULAR HGB 31.6 pg (27.0-31.0); MEAN CORPUSCULAR HGB CONC 31.9 g/dl (33.0-37.0); MEAN PLATELET VOLUME 10.7 fl (9.6-12.3); MONO # 0.4 10*3/uL (0.1-1.0); NEUT # 2.7 10*3/uL (2.3-7.9); PLATELET COUNT AUTOMATED 192 10*3/uL (130-400); RED BLOOD COUNT 3.16 10*6/uL (4.50-5.90); RED CELL DISTRI WIDTH 13.5 % (0-14.5); WHITE BLOOD COUNT 5.6 10*3/uL (4.8-10.8)
[2020-01-28 08:00] VITALS: BP 149/69
[2020-01-28 08:10] LABS: CREATININE 1.56 mg/dL (0.70-1.30)
[2020-01-28 10:19] LABS: ACT PARTIAL THROMBO TIME 25.5 SECONDS (20.0-32.1); INTERNATIONAL NORM RATIO 0.9 (2.0-3.5)
[2020-01-28 12:00] VITALS: BP 156/61
[2020-01-28 16:00] VITALS: BP 139/56
[2020-01-28 20:00] VITALS: BP 136/56
[2020-01-29] VITALS: BP 152/65
[2020-01-29 06:55] LABS: ALBUMIN 3.6 gm/dl (3.1-4.5); ALKALINE PHOSPHATASE 115 U/L (45-117); BUN 21 mg/dl (7-24); CHLORIDE 115 mmol/L (98-107); CREATININE 1.21 mg/dL (0.70-1.30); POTASSIUM 4.5 mmol/L (3.5-5.1); SGOT/AST 10 IU/L (3-35); SGPT/ALT 24 U/L (12-78); SODIUM 144 mmol/L (136-145); TOTAL PROTEIN 6.7 gm/dL (6.4-8.2)
[2020-01-29 08:00] VITALS: BP 132/64
[2020-01-29 12:00] VITALS: BP 119/51
[2020-01-29 16:00] VITALS: BP 143/66
[2020-01-29 20:00] VITALS: BP 157/64
[2020-01-29 23:30] VITALS: BP 164/82
[2020-01-30] VITALS: BP 167/70
[2020-01-30 01:00] VITALS: BP 142/76
[2020-01-30 06:39] LABS: BUN 17 mg/dl (7-24); CHLORIDE 113 mmol/L (98-107); CREATININE 1.15 mg/dL (0.70-1.30); POTASSIUM 4.5 mmol/L (3.5-5.1); SODIUM 141 mmol/L (136-145)
== END 2020-01-30 07:31 | disposition left against medical advice (07) | DRG 469 ==
LOC: ED 18:07 → EDHOLD 20:04 → 4E 20:04
PROVIDERS: Internal Medicine Nephrology; Nurse Practitioner Family; ADMIT Internal Medicine
DX: N17.9 Acute kidney failure, unspecified (principal); E87.5 Hyperkalemia; E11.65 Type 2 diabetes mellitus with hyperglycemia; I25.10 Atherosclerotic heart disease of native coronary artery without angina pectoris; M1A.9XX0 Chronic gout, unspecified, without tophus (tophi); N18.3 Chronic kidney disease, stage 3 (moderate); E11.22 Type 2 diabetes mellitus with diabetic chronic kidney disease; F33.0 Major depressive disorder, recurrent, mild; K21.0 Gastro-esophageal reflux disease with esophagitis; G89.29 Other chronic pain; E11.42 Type 2 diabetes mellitus with diabetic polyneuropathy; E66.01 Morbid (severe) obesity due to excess calories; I12.9 Hypertensive chronic kidney disease with stage 1 through stage 4 chronic kidney disease, or unspecified chronic kidney disease; E83.51 Hypocalcemia; E87.8 Other disorders of electrolyte and fluid balance, not elsewhere classified; E83.42 Hypomagnesemia; M54.9 Dorsalgia, unspecified; M54.2 Cervicalgia; E83.9 Disorder of mineral metabolism, unspecified; F17.200 Nicotine dependence, unspecified, uncomplicated; Z53.29 Procedure and treatment not carried out because of patient's decision for other reasons; Z68.36 Body mass index [BMI] 36.0-36.9, adult; Z90.49 Acquired absence of other specified parts of digestive tract; Z79.899 Other long term (current) drug therapy; Z79.4 Long term (current) use of insulin; Z79.82 Long term (current) use of aspirin

== ENCOUNTER 2020-06-29 12:48 | Inpatient (IN) | payer OTHER ==
[~2020-06-29] VITALS: Ht 182.8 cm; Wt 109.0 kg
[2020-06-29] VITALS (11 sets, daily range): BP systolic 157–183; BP diastolic 77–120
[~2020-06-29 12:48] MED LIST changes: +HUMALOG 751 UNIT/0.0 SC; +IRON18 MG PO
[2020-06-29 13:15] LABS: BASO % 0.4 % (0.0-1.0); EOS # 0.1 10*3/uL (0.0-0.4); HEMATOCRIT 39.3 % (42.0-52.0); LYMPH # 1.6 10*3/uL (1.3-4.4); LYMPH % 17.5 % (27.0-41.0); MEAN CELL VOLUME 94.9 fl (80.0-94.0); MEAN CORPUSCULAR HGB 31.2 pg (27.0-31.0); MEAN CORPUSCULAR HGB CONC 32.8 g/dl (33.0-37.0); MEAN PLATELET VOLUME 10.3 fl (9.6-12.3); MONO # 0.6 10*3/uL (0.1-1.0); MONO % 6.5 % (3.0-9.0); NEUT # 6.7 10*3/uL (2.3-7.9); NEUT % 74.2 % (47.0-73.0); PLATELET COUNT AUTOMATED 221 10*3/uL (130-400); RED BLOOD COUNT 4.14 10*6/uL (4.50-5.90)
[2020-06-29 13:25] LABS: ACT PARTIAL THROMBO TIME 26.2 SECONDS (20.0-32.1)
[2020-06-29 13:34] LABS: ALBUMIN 4.1 gm/dl (3.1-4.5); ALKALINE PHOSPHATASE 148 U/L (45-117); BUN 29 mg/dl (7-24); CHLORIDE 108 mmol/L (98-107); POTASSIUM 4.3 mmol/L (3.5-5.1); SGOT/AST 14 IU/L (3-35); SGPT/ALT 25 U/L (12-78); SODIUM 137 mmol/L (136-145)
[2020-06-29 13:36] LABS: TROPONIN I < 0.015 ng/ml (<0.045)
[2020-06-29 20:12] LABS: LIPASE 97 U/L (73-393)
[2020-06-29] MEDS ORDERED: NEURONTIN300 MG PO (23:52)
[2020-06-29] MEDS ORDERED: ZESTORETIC 20-1 EACH PO (23:53)
[2020-06-29] MEDS ORDERED: OMEPRAZOLE40 MG PO (23:53)
[2020-06-29] MEDS ORDERED: CITALOPRAM HYDR40 MG PO (23:54)
[2020-06-29] MEDS ORDERED: ALLOPURINOL100 MG PO (23:54)
[2020-06-29] MEDS ORDERED: TOPAMAX50 MG PO (23:54)
[2020-06-29] MEDS ORDERED: INSULIN LI100 UNIT/3 SC (23:55)
[2020-06-29] MEDS ORDERED: BASAG SOL SQ (23:55)
[2020-06-29] MEDS ORDERED: ST. JOSEPH ASPI81 MG PO (23:56)
[2020-06-29] MEDS ORDERED: JARDIANCE25 MG PO (23:56)
[2020-06-29] MEDS ORDERED: VITAMIN D250 MC1 PO (23:56)
[2020-06-30] VITALS (8 sets, daily range): BP systolic 80–172; BP diastolic 49–92
[2020-06-30] MEDS ORDERED: HYDR25T PO (00:09)
[2020-06-30] MEDS ORDERED: LISINOPRIL40 MG PO (00:09)
[2020-07-01] VITALS: BP 126/62
[2020-07-01 08:00] VITALS: BP 138/84
[2020-07-01 11:51] LABS: BILIRUBIN Negative (Negative); BLOOD Negative (Negative); CLARITY Clear (Clear); COLOR Yellow (Yellow); GLUCOSE 3+ (Negative); KETONE 1+ (Negative); LEUKO ESTERASE Negative (Negative); NITRITE Negative (Negative); SPECIFIC GRAVITY 1.015 (1.001-1.030); UROBILINOGEN 0.2 E.U./dl (0.0-1.0)
[2020-07-01 11:55] LABS: LIPASE 94 U/L (73-393)
[2020-07-01 12:00] VITALS: BP 182/89
[2020-07-01 12:08] LABS: EPITHELIAL CELLS 0-2; RBC 0-2 rbc/hpf (0-2)
[2020-07-01 14:38] LABS: BASO % 0.3 % (0.0-1.0); EOS % 0.1 % (1.0-4.0); HEMATOCRIT 37.2 % (42.0-52.0); LYMPH # 1.3 10*3/uL (1.3-4.4); MEAN CELL VOLUME 95.9 fl (80.0-94.0); MEAN CORPUSCULAR HGB 31.7 pg (27.0-31.0); MEAN CORPUSCULAR HGB CONC 33.1 g/dl (33.0-37.0); MEAN PLATELET VOLUME 10.8 fl (9.6-12.3); MONO # 0.5 10*3/uL (0.1-1.0); MONO % 4.8 % (3.0-9.0); NEUT # 8.2 10*3/uL (2.3-7.9); NEUT % 81.2 % (47.0-73.0); PLATELET COUNT AUTOMATED 214 10*3/uL (130-400); RED BLOOD COUNT 3.88 10*6/uL (4.50-5.90); RED CELL DISTRI WIDTH 13.9 % (0-14.5); WHITE BLOOD COUNT 10.1 10*3/uL (4.8-10.8)
[2020-07-01 15:09] LABS: ALKALINE PHOSPHATASE 131 U/L (45-117); BUN 30 mg/dl (7-24); CHLORIDE 108 mmol/L (98-107); CREATININE 1.41 mg/dL (0.70-1.30); POTASSIUM 4.1 mmol/L (3.5-5.1); SGOT/AST 20 IU/L (3-35); SGPT/ALT 23 U/L (12-78); SODIUM 139 mmol/L (136-145); TOTAL PROTEIN 7.8 gm/dL (6.4-8.2)
[2020-07-01 16:00] VITALS: BP 193/86
[2020-07-01 20:00] VITALS: BP 172/86
[2020-07-02] VITALS: BP 116/67
[2020-07-02 05:25] VITALS: BP 130/69
[2020-07-02 06:27] LABS: BASO % 0.4 % (0.0-1.0); EOS # 0.1 10*3/uL (0.0-0.4); EOS % 0.9 % (1.0-4.0); HEMATOCRIT 33.5 % (42.0-52.0); LYMPH # 2.6 10*3/uL (1.3-4.4); LYMPH % 28.1 % (27.0-41.0); MEAN CELL VOLUME 96.8 fl (80.0-94.0); MEAN CORPUSCULAR HGB 31.5 pg (27.0-31.0); MEAN CORPUSCULAR HGB CONC 32.5 g/dl (33.0-37.0); MEAN PLATELET VOLUME 10.7 fl (9.6-12.3); MONO # 0.8 10*3/uL (0.1-1.0); MONO % 8.6 % (3.0-9.0); NEUT # 5.6 10*3/uL (2.3-7.9); NEUT % 61.7 % (47.0-73.0); PLATELET COUNT AUTOMATED 200 10*3/uL (130-400); RED BLOOD COUNT 3.46 10*6/uL (4.50-5.90); RED CELL DISTRI WIDTH 13.7 % (0-14.5); WHITE BLOOD COUNT 9.1 10*3/uL (4.8-10.8)
[2020-07-02 06:33] LABS: CREATININE 1.46 mg/dL (0.70-1.30); POTASSIUM 3.6 mmol/L (3.5-5.1)
[2020-07-02] MEDS ORDERED: ISOSORBIDE DINI30 MG PO (09:02)
[2020-07-02] MEDS ORDERED: LOPRESSOR25 MG PO (09:02)
== END 2020-07-02 12:32 | disposition home or self-care (01) | DRG 241 ==
LOC: ED 12:48 → 4E 21:18 → EDHOLD 21:18 → 4E 23:05
PROVIDERS: Emergency Medicine; Internal Medicine Critical Care Medicine; Internal Medicine Gastroenterology; ADMIT Internal Medicine; ATTEND Internal Medicine
PROC: 0DB78ZX Excision of Stomach, Pylorus, Via Natural or Artificial Opening Endoscopic, Diagnostic (ICD-10-PCS; principal; 2020-06-30)
DX: K29.70 Gastritis, unspecified, without bleeding (principal); K22.10 Ulcer of esophagus without bleeding; K44.9 Diaphragmatic hernia without obstruction or gangrene; K25.9 Gastric ulcer, unspecified as acute or chronic, without hemorrhage or perforation; N18.32 Chronic kidney disease, stage 3b; I12.9 Hypertensive chronic kidney disease with stage 1 through stage 4 chronic kidney disease, or unspecified chronic kidney disease; E11.65 Type 2 diabetes mellitus with hyperglycemia; I25.10 Atherosclerotic heart disease of native coronary artery without angina pectoris; F17.210 Nicotine dependence, cigarettes, uncomplicated; E11.22 Type 2 diabetes mellitus with diabetic chronic kidney disease; J20.9 Acute bronchitis, unspecified; F43.23 Adjustment disorder with mixed anxiety and depressed mood; F33.1 Major depressive disorder, recurrent, moderate; E78.5 Hyperlipidemia, unspecified; M10.9 Gout, unspecified; E66.9 Obesity, unspecified; G89.29 Other chronic pain; M54.5 Low back pain; E86.0 Dehydration; R07.9 Chest pain, unspecified; Z82.49 Family history of ischemic heart disease and other diseases of the circulatory system; Z90.49 Acquired absence of other specified parts of digestive tract; Z71.6 Tobacco abuse counseling; Z68.32 Body mass index [BMI] 32.0-32.9, adult

== ENCOUNTER 2021-01-05 21:42 | Inpatient (IN) | payer OTHER ==
[~2021-01-05] VITALS: Ht 182.8 cm; Wt 115.7 kg
[~2021-01-05 21:42] MED LIST changes: +ALLOPURINOL100 MG PO; +BASAG SOL SQ; +CITALOPRAM HYDR40 MG PO; +HYDR25T PO; +INSULIN LI100 UNIT/3 SC; +ISOSORBIDE DINI30 MG PO; +JARDIANCE25 MG PO; +LISINOPRIL40 MG PO; +LOPRESSOR25 MG PO; +ST. JOSEPH ASPI81 MG PO; +VITAMIN D250 MC1 PO
[2021-01-05 21:57] VITALS: BP 188/97
[2021-01-05 22:08] LABS: BASO % 0.5 % (0.0-1.0); HEMATOCRIT 40.3 % (42.0-52.0); LYMPH # 1.3 10*3/uL (1.3-4.4); MEAN CELL VOLUME 92.6 fl (80.0-94.0); MEAN CORPUSCULAR HGB 31.3 pg (27.0-31.0); MEAN CORPUSCULAR HGB CONC 33.7 g/dl (33.0-37.0); MEAN PLATELET VOLUME 10.7 fl (9.6-12.3); MONO # 0.3 10*3/uL (0.1-1.0); MONO % 3.8 % (3.0-9.0); NEUT # 6.6 10*3/uL (2.3-7.9); NEUT % 79.3 % (47.0-73.0); PLATELET COUNT AUTOMATED 213 10*3/uL (130-400); RED BLOOD COUNT 4.35 10*6/uL (4.50-5.90); WHITE BLOOD COUNT 8.4 10*3/uL (4.8-10.8)
[2021-01-05 22:27] LABS: ALBUMIN 4.2 gm/dl (3.1-4.5); ALKALINE PHOSPHATASE 126 U/L (45-117); BUN 47 mg/dl (7-24); CHLORIDE 106 mmol/L (98-107); CREATININE 2.22 mg/dL (0.70-1.30); LIPASE 154 U/L (73-393); SGOT/AST 9 IU/L (3-35); SGPT/ALT 21 U/L (12-78); SODIUM 137 mmol/L (136-145); TOTAL PROTEIN 8.1 gm/dL (6.4-8.2)
[2021-01-05 22:33] LABS: TROPONIN I < 0.015 ng/ml (<0.045)
[2021-01-05 23:28] VITALS: BP 188/87
[2021-01-06] VITALS (8 sets, daily range): BP systolic 107–217; BP diastolic 52–90
[2021-01-06] MEDS ORDERED: PANTOPRAZOLE SO40 MG PO (03:53)
[2021-01-06] MEDS ORDERED: AMARYL4 MG PO (03:53)
[2021-01-06] MEDS ORDERED: CARVEDILOL12.5 MG PO (03:54)
[2021-01-06] MEDS ORDERED: OZEMPIC0.25 MG/01 SQ (03:55)
[2021-01-06] MEDS ORDERED: NEURONTIN600 MG PO (03:56)
[2021-01-06] MEDS ORDERED: BASAG SOL SQ (04:09)
[2021-01-06 06:24] LABS: POTASSIUM 4.3 mmol/L (3.5-5.1)
[2021-01-06 06:37] LABS: CREATININE 1.93 mg/dL (0.70-1.30)
[2021-01-07] VITALS: BP 158/84
[2021-01-07 08:00] VITALS: BP 160/68
[2021-01-07 11:03] LABS: BASO # 0.1 10*3/uL (0.0-0.1); BASO % 0.4 % (0.0-1.0); EOS % 0.2 % (1.0-4.0); HEMATOCRIT 36.6 % (42.0-52.0); LYMPH # 2.1 10*3/uL (1.3-4.4); LYMPH % 14.6 % (27.0-41.0); MEAN CELL VOLUME 94.1 fl (80.0-94.0); MEAN CORPUSCULAR HGB 31.6 pg (27.0-31.0); MEAN CORPUSCULAR HGB CONC 33.6 g/dl (33.0-37.0); MEAN PLATELET VOLUME 10.9 fl (9.6-12.3); MONO # 0.9 10*3/uL (0.1-1.0); MONO % 6.6 % (3.0-9.0); NEUT % 77.8 % (47.0-73.0); PLATELET COUNT AUTOMATED 191 10*3/uL (130-400); RED BLOOD COUNT 3.89 10*6/uL (4.50-5.90); RED CELL DISTRI WIDTH 13.7 % (0-14.5); WHITE BLOOD COUNT 14.1 10*3/uL (4.8-10.8)
[2021-01-07 12:00] VITALS: BP 133/51
[2021-01-07 16:00] VITALS: BP 103/61
[2021-01-07 20:00] VITALS: BP 107/59
[2021-01-08] VITALS: BP 117/60
[2021-01-08 04:00] VITALS: BP 117/60
[2021-01-08 06:35] LABS: BASO % 0.5 % (0.0-1.0); EOS # 0.1 10*3/uL (0.0-0.4); EOS % 1.4 % (1.0-4.0); HEMATOCRIT 33.5 % (42.0-52.0); LYMPH % 36.6 % (27.0-41.0); MEAN CELL VOLUME 95.2 fl (80.0-94.0); MEAN CORPUSCULAR HGB 31.5 pg (27.0-31.0); MEAN CORPUSCULAR HGB CONC 33.1 g/dl (33.0-37.0); MONO # 0.7 10*3/uL (0.1-1.0); MONO % 9.2 % (3.0-9.0); NEUT # 4.2 10*3/uL (2.3-7.9); NEUT % 51.9 % (47.0-73.0); PLATELET COUNT AUTOMATED 165 10*3/uL (130-400); RED BLOOD COUNT 3.52 10*6/uL (4.50-5.90); RED CELL DISTRI WIDTH 13.8 % (0-14.5); WHITE BLOOD COUNT 8.1 10*3/uL (4.8-10.8)
[2021-01-08 06:48] LABS: CREATININE 1.46 mg/dL (0.70-1.30); POTASSIUM 3.8 mmol/L (3.5-5.1)
[2021-01-08 12:00] VITALS: BP 106/54
[2021-01-08 16:00] VITALS: BP 133/63
== END 2021-01-08 18:10 | disposition home or self-care (01) | DRG 249 ==
LOC: ED 21:42 → EDHOLD 01-06 02:27 → 4E 01-06 02:27
PROVIDERS: Internal Medicine; ADMIT Internal Medicine; ATTEND Internal Medicine
DX: A08.4 Viral intestinal infection, unspecified (principal); N18.9 Chronic kidney disease, unspecified; N17.0 Acute kidney failure with tubular necrosis; R73.9 Hyperglycemia, unspecified; F33.9 Major depressive disorder, recurrent, unspecified; Z20.822 Contact with and (suspected) exposure to COVID-19; I12.9 Hypertensive chronic kidney disease with stage 1 through stage 4 chronic kidney disease, or unspecified chronic kidney disease; E66.9 Obesity, unspecified; M10.9 Gout, unspecified; K75.81 Nonalcoholic steatohepatitis (NASH)

== ENCOUNTER 2021-03-21 22:12 | Inpatient (IN) | payer OTHER ==
[~2021-03-21] VITALS: Ht 182.8 cm; Wt 109.4 kg
[~2021-03-21 22:12] MED LIST changes: +AMARYL4 MG PO; +CARVEDILOL12.5 MG PO; +NEURONTIN600 MG PO; +OZEMPIC0.25 MG/01 SQ; +PANTOPRAZOLE SO40 MG PO
[2021-03-21 23:03] VITALS: BP 198/105
[2021-03-21 23:38] LABS: BASO # 0.1 10*3/uL (0.0-0.1); BASO % 0.5 % (0.0-1.0); EOS # 0.1 10*3/uL (0.0-0.4); EOS % 1.2 % (1.0-4.0); HEMATOCRIT 38.1 % (42.0-52.0); LYMPH % 16.7 % (27.0-41.0); MEAN CELL VOLUME 92.9 fl (80.0-94.0); MEAN CORPUSCULAR HGB 31.2 pg (27.0-31.0); MEAN CORPUSCULAR HGB CONC 33.6 g/dl (33.0-37.0); MEAN PLATELET VOLUME 10.7 fl (9.6-12.3); MONO # 0.7 10*3/uL (0.1-1.0); MONO % 5.9 % (3.0-9.0); NEUT # 9.1 10*3/uL (2.3-7.9); NEUT % 75.2 % (47.0-73.0); PLATELET COUNT AUTOMATED 233 10*3/uL (130-400); RED CELL DISTRI WIDTH 13.9 % (0-14.5); WHITE BLOOD COUNT 12.1 10*3/uL (4.8-10.8)
[2021-03-21 23:56] LABS: ALBUMIN 4.3 gm/dl (3.1-4.5); ALKALINE PHOSPHATASE 119 U/L (45-117); BUN 22 mg/dl (7-24); CHLORIDE 107 mmol/L (98-107); CREATININE 1.59 mg/dL (0.70-1.30); LIPASE 179 U/L (73-393); POTASSIUM 3.7 mmol/L (3.5-5.1); SGOT/AST 12 IU/L (3-35); SGPT/ALT 18 U/L (12-78); SODIUM 138 mmol/L (136-145); TOTAL PROTEIN 7.7 gm/dL (6.4-8.2)
[2021-03-21 23:57] LABS: TROPONIN I < 0.015 ng/ml (<0.045)
[2021-03-22] VITALS (15 sets, daily range): BP systolic 118–199; BP diastolic 63–105
[2021-03-22 02:07] LABS: BILIRUBIN Negative (Negative); BLOOD Negative (Negative); CLARITY Clear (Clear); COLOR Yellow (Yellow); GLUCOSE 2+ (Negative); KETONE 1+ (Negative); LEUKO ESTERASE Negative (Negative); NITRITE Negative (Negative); PH 6.5 (4.5-8.0); SPECIFIC GRAVITY 1.015 (1.001-1.030); UROBILINOGEN 0.2 E.U./dl (0.0-1.0)
[2021-03-22 02:37] LABS: WBC 0-2 wbc/hpf (0-5)
[2021-03-22] MEDS ORDERED: ZESTRIL20 MG PO (13:59)
[2021-03-22] MEDS ORDERED: HYDR25T PO (13:59)
[2021-03-22] MEDS ORDERED: PRAVASTATIN SOD10 MG PO (14:08)
[2021-03-22] MEDS ORDERED: VITAMIN B121000 MC1 PO (14:09)
[2021-03-23] VITALS: BP 115/71
[2021-03-23 08:00] VITALS: BP 140/72
[2021-03-23 10:08] LABS: BASO # 0.1 10*3/uL (0.0-0.1); BASO % 0.6 % (0.0-1.0); EOS # 0.2 10*3/uL (0.0-0.4); EOS % 1.6 % (1.0-4.0); LYMPH % 27.2 % (27.0-41.0); MEAN CELL VOLUME 93.9 fl (80.0-94.0); MEAN CORPUSCULAR HGB 31.7 pg (27.0-31.0); MEAN CORPUSCULAR HGB CONC 33.8 g/dl (33.0-37.0); MEAN PLATELET VOLUME 10.4 fl (9.6-12.3); MONO # 0.9 10*3/uL (0.1-1.0); MONO % 8.1 % (3.0-9.0); NEUT # 6.9 10*3/uL (2.3-7.9); NEUT % 62.1 % (47.0-73.0); PLATELET COUNT AUTOMATED 217 10*3/uL (130-400); RED BLOOD COUNT 3.94 10*6/uL (4.50-5.90); WHITE BLOOD COUNT 11.1 10*3/uL (4.8-10.8)
[2021-03-23 10:46] LABS: ALBUMIN 3.9 gm/dl (3.1-4.5); CREATININE 1.74 mg/dL (0.70-1.30); POTASSIUM 4.1 mmol/L (3.5-5.1); TOTAL PROTEIN 7.5 gm/dL (6.4-8.2)
[2021-03-23 12:00] VITALS: BP 178/95
[2021-03-23 16:00] VITALS: BP 143/79
[2021-03-23 20:00] VITALS: BP 181/93
[2021-03-23 21:22] VITALS: BP 180/90
[2021-03-24 00:11] VITALS: BP 115/81
[2021-03-24 06:19] LABS: CREATININE 1.69 mg/dL (0.70-1.30); POTASSIUM 3.8 mmol/L (3.5-5.1)
[2021-03-24 08:00] VITALS: BP 187/94
[2021-03-24 12:00] VITALS: BP 98/56
[2021-03-24 16:00] VITALS: BP 155/72
[2021-03-24 17:58] VITALS: BP 168/90
[2021-03-24 20:00] VITALS: BP 176/94
[2021-03-25] VITALS (28 sets, daily range): BP systolic 62–172; BP diastolic 44–137
[2021-03-25 07:30] LABS: BASO % 0.4 % (0.0-1.0); EOS # 0.1 10*3/uL (0.0-0.4); EOS % 0.5 % (1.0-4.0); HEMATOCRIT 33.8 % (42.0-52.0); LYMPH # 2.1 10*3/uL (1.3-4.4); MEAN CELL VOLUME 93.1 fl (80.0-94.0); MEAN CORPUSCULAR HGB 31.4 pg (27.0-31.0); MEAN CORPUSCULAR HGB CONC 33.7 g/dl (33.0-37.0); MEAN PLATELET VOLUME 10.8 fl (9.6-12.3); MONO # 0.9 10*3/uL (0.1-1.0); MONO % 8.4 % (3.0-9.0); NEUT # 7.9 10*3/uL (2.3-7.9); NEUT % 70.9 % (47.0-73.0); PLATELET COUNT AUTOMATED 214 10*3/uL (130-400); RED BLOOD COUNT 3.63 10*6/uL (4.50-5.90); RED CELL DISTRI WIDTH 13.8 % (0-14.5); WHITE BLOOD COUNT 11.2 10*3/uL (4.8-10.8)
[2021-03-25 07:40] LABS: ALBUMIN 3.4 gm/dl (3.1-4.5); CREATININE 3.39 mg/dL (0.70-1.30); POTASSIUM 3.6 mmol/L (3.5-5.1)
[2021-03-25 07:42] LABS: TOTAL PROTEIN 6.6 gm/dL (6.4-8.2)
[2021-03-25 18:28] LABS: BILIRUBIN Negative (Negative); BLOOD Negative (Negative); CLARITY Turbid (Clear); COLOR Yellow (Yellow); GLUCOSE 3+ (Negative); KETONE Trace (Negative); LEUKO ESTERASE Negative (Negative); NITRITE Negative (Negative); SPECIFIC GRAVITY 1.025 (1.001-1.030); UROBILINOGEN 0.2 E.U./dl (0.0-1.0)
[2021-03-25 19:16] LABS: BACTERIA 1+; HYALINE CAST 21-30
[2021-03-26] VITALS (7 sets, daily range): BP systolic 98–178; BP diastolic 40–90
[2021-03-26 06:02] LABS: CREATININE 1.89 mg/dL (0.70-1.30); POTASSIUM 3.6 mmol/L (3.5-5.1)
[2021-03-26 06:28] LABS: BASO % 0.2 % (0.0-1.0); EOS % 0.1 % (1.0-4.0); HEMATOCRIT 30.5 % (42.0-52.0); LYMPH # 1.9 10*3/uL (1.3-4.4); LYMPH % 19.1 % (27.0-41.0); MEAN CORPUSCULAR HGB 31.3 pg (27.0-31.0); MEAN CORPUSCULAR HGB CONC 34.4 g/dl (33.0-37.0); MEAN PLATELET VOLUME 11.1 fl (9.6-12.3); MONO # 0.9 10*3/uL (0.1-1.0); MONO % 9.5 % (3.0-9.0); NEUT % 70.7 % (47.0-73.0); PLATELET COUNT AUTOMATED 190 10*3/uL (130-400); RED BLOOD COUNT 3.35 10*6/uL (4.50-5.90); RED CELL DISTRI WIDTH 13.5 % (0-14.5); WHITE BLOOD COUNT 9.9 10*3/uL (4.8-10.8)
[2021-03-27] VITALS: BP 99/51
[2021-03-27 04:00] VITALS: BP 108/49
[2021-03-27 04:59] LABS: BASO % 0.3 % (0.0-1.0); EOS % 0.4 % (1.0-4.0); HEMATOCRIT 27.6 % (42.0-52.0); LYMPH # 2.1 10*3/uL (1.3-4.4); LYMPH % 22.5 % (27.0-41.0); MEAN CELL VOLUME 93.6 fl (80.0-94.0); MEAN CORPUSCULAR HGB 31.2 pg (27.0-31.0); MEAN CORPUSCULAR HGB CONC 33.3 g/dl (33.0-37.0); MEAN PLATELET VOLUME 10.4 fl (9.6-12.3); MONO % 10.7 % (3.0-9.0); NEUT # 6.1 10*3/uL (2.3-7.9); NEUT % 65.7 % (47.0-73.0); PLATELET COUNT AUTOMATED 160 10*3/uL (130-400); RED BLOOD COUNT 2.95 10*6/uL (4.50-5.90); RED CELL DISTRI WIDTH 13.9 % (0-14.5); WHITE BLOOD COUNT 9.2 10*3/uL (4.8-10.8)
[2021-03-27 08:00] VITALS: BP 111/54
[2021-03-27 12:00] VITALS: BP 93/39
[2021-03-27 13:13] LABS: CREATININE 1.88 mg/dL (0.70-1.30); POTASSIUM 3.6 mmol/L (3.5-5.1)
[2021-03-27 16:00] VITALS: BP 111/54
[2021-03-27 20:00] VITALS: BP 155/72
[2021-03-28] VITALS: BP 173/53
[2021-03-28 04:00] VITALS: BP 169/61
[2021-03-28 05:56] LABS: BASO % 0.3 % (0.0-1.0); EOS # 0.1 10*3/uL (0.0-0.4); EOS % 0.8 % (1.0-4.0); HEMATOCRIT 29.6 % (42.0-52.0); LYMPH # 1.7 10*3/uL (1.3-4.4); LYMPH % 18.7 % (27.0-41.0); MEAN CELL VOLUME 93.1 fl (80.0-94.0); MEAN CORPUSCULAR HGB 31.1 pg (27.0-31.0); MEAN CORPUSCULAR HGB CONC 33.4 g/dl (33.0-37.0); MEAN PLATELET VOLUME 11.2 fl (9.6-12.3); MONO # 0.8 10*3/uL (0.1-1.0); MONO % 9.2 % (3.0-9.0); NEUT # 6.3 10*3/uL (2.3-7.9); NEUT % 70.4 % (47.0-73.0); PLATELET COUNT AUTOMATED 173 10*3/uL (130-400); RED BLOOD COUNT 3.18 10*6/uL (4.50-5.90); RED CELL DISTRI WIDTH 13.6 % (0-14.5); WHITE BLOOD COUNT 8.9 10*3/uL (4.8-10.8)
[2021-03-28 08:00] VITALS: BP 115/46
[2021-03-28 12:00] VITALS: BP 89/50
[2021-03-28] MEDS ORDERED: TYLENOL EXTRA500 M2 PO (14:51)
[2021-03-28] MEDS ORDERED: MIRALAX POWDER17 G1 PO (14:51)
[2021-03-28] MEDS ORDERED: LISINOPRIL2.5 MG PO (14:57)
[2021-03-28] MEDS ORDERED: Lantus SC (14:57)
[2021-03-28] MEDS ORDERED: ASPIR-TRIN325 MG PO (14:57)
== END 2021-03-28 15:20 | disposition home health service (06) | DRG 950 ==
LOC: ED 22:12 → ICCU 03-22 01:20 → EDHOLD 03-22 01:20 → 4E 03-22 01:20 → ICCU 03-25 05:55
PROVIDERS: Emergency Medicine; Internal Medicine; Internal Medicine Gastroenterology; Internal Medicine Nephrology; Orthopaedic Surgery; Registered Nurse; ADMIT Internal Medicine; ATTEND Internal Medicine
PROC: 0SRR0JZ Replacement of Right Hip Joint, Femoral Surface with Synthetic Substitute, Open Approach (ICD-10-PCS; principal; 2021-03-25)
DX: E11.43 Type 2 diabetes mellitus with diabetic autonomic (poly)neuropathy (principal); S72.031A Displaced midcervical fracture of right femur, initial encounter for closed fracture; I12.9 Hypertensive chronic kidney disease with stage 1 through stage 4 chronic kidney disease, or unspecified chronic kidney disease; E11.22 Type 2 diabetes mellitus with diabetic chronic kidney disease; N18.31 Chronic kidney disease, stage 3a; M1A.9XX0 Chronic gout, unspecified, without tophus (tophi); K31.84 Gastroparesis; N17.0 Acute kidney failure with tubular necrosis; R62.7 Adult failure to thrive; I25.10 Atherosclerotic heart disease of native coronary artery without angina pectoris; M47.816 Spondylosis without myelopathy or radiculopathy, lumbar region; E66.9 Obesity, unspecified; E11.42 Type 2 diabetes mellitus with diabetic polyneuropathy; K21.00 Gastro-esophageal reflux disease with esophagitis, without bleeding; K44.9 Diaphragmatic hernia without obstruction or gangrene; K29.50 Unspecified chronic gastritis without bleeding; D64.9 Anemia, unspecified; F41.1 Generalized anxiety disorder; R06.02 Shortness of breath; R55 Syncope and collapse; F17.210 Nicotine dependence, cigarettes, uncomplicated; J43.2 Centrilobular emphysema; K59.09 Other constipation; F33.1 Major depressive disorder, recurrent, moderate; K76.0 Fatty (change of) liver, not elsewhere classified; Y92.231 Patient bathroom in hospital as the place of occurrence of the external cause; Z20.822 Contact with and (suspected) exposure to COVID-19; W01.0XXA Fall on same level from slipping, tripping and stumbling without subsequent striking against object, initial encounter; Z71.6 Tobacco abuse counseling; Z82.49 Family history of ischemic heart disease and other diseases of the circulatory system; Z90.49 Acquired absence of other specified parts of digestive tract; Z87.11 Personal history of peptic ulcer disease; Y93.89 Activity, other specified; Y99.8 Other external cause status; Z68.32 Body mass index [BMI] 32.0-32.9, adult

== ENCOUNTER → 2021-04-08 | Outpatient (CLI) | payer OTHER ==
[~2021-04-08] MED LIST changes: +ASPIR-TRIN325 MG PO; +LISINOPRIL2.5 MG PO; +Lantus SC; +MIRALAX POWDER17 G1 PO; +PRAVASTATIN SOD10 MG PO; +TYLENOL EXTRA500 M2 PO; +VITAMIN B121000 MC1 PO; +ZESTRIL20 MG PO
== END | disposition home or self-care (01) ==
LOC: ORTHO 00:17
PROVIDERS: ATTEND Orthopaedic Surgery
DX: S72.031D Displaced midcervical fracture of right femur, subsequent encounter for closed fracture with routine healing (principal); X58.XXXD Exposure to other specified factors, subsequent encounter; Z96.641 Presence of right artificial hip joint

== ENCOUNTER → 2021-05-20 | Outpatient (CLI) | payer OTHER ==
[~2021-05-20] MED LIST changes: +HYDROCODONE-AC1 EAC1 PO; +ZOFRAN4 MG PO
== END | disposition home or self-care (01) ==
LOC: ORTHO 00:28
PROVIDERS: ATTEND Orthopaedic Surgery
DX: S72.031D Displaced midcervical fracture of right femur, subsequent encounter for closed fracture with routine healing (principal); X58.XXXD Exposure to other specified factors, subsequent encounter

== ENCOUNTER 2021-05-23 08:28 | Emergency (ER) | payer OTHER ==
[~2021-05-23] VITALS: Ht 182.8 cm; Wt 105.3 kg
[~2021-05-23 08:28] MED LIST changes: -HYDROCODONE-AC1 EAC1 PO; -ZOFRAN4 MG PO
[2021-05-23 09:41] LABS: BASO # 0.1 10*3/uL (0.0-0.1); BASO % 0.5 % (0.0-1.0); EOS % 0.3 % (1.0-4.0); HEMATOCRIT 37.3 % (42.0-52.0); LYMPH # 1.7 10*3/uL (1.3-4.4); LYMPH % 17.2 % (27.0-41.0); MEAN CELL VOLUME 90.3 fl (80.0-94.0); MEAN CORPUSCULAR HGB 31.2 pg (27.0-31.0); MEAN CORPUSCULAR HGB CONC 34.6 g/dl (33.0-37.0); MONO # 0.8 10*3/uL (0.1-1.0); MONO % 7.7 % (3.0-9.0); NEUT # 7.5 10*3/uL (2.3-7.9); NEUT % 73.8 % (47.0-73.0); PLATELET COUNT AUTOMATED 269 10*3/uL (130-400); RED BLOOD COUNT 4.13 10*6/uL (4.50-5.90); RED CELL DISTRI WIDTH 14.1 % (0-14.5); WHITE BLOOD COUNT 10.1 10*3/uL (4.8-10.8)
[2021-05-23 09:56] LABS: ALBUMIN 4.1 gm/dl (3.1-4.5); ALKALINE PHOSPHATASE 123 U/L (45-117); BUN 21 mg/dl (7-24); CHLORIDE 101 mmol/L (98-107); CREATININE 1.32 mg/dL (0.70-1.30); LIPASE 79 U/L (73-393); POTASSIUM 3.3 mmol/L (3.5-5.1); SGOT/AST 12 IU/L (3-35); SGPT/ALT 20 U/L (12-78); SODIUM 134 mmol/L (136-145); TOTAL PROTEIN 7.8 gm/dL (6.4-8.2)
[2021-05-23 09:58] LABS: TROPONIN I < 0.015 ng/ml (<0.045)
[2021-05-23 10:09] LABS: BILIRUBIN Negative (Negative); BLOOD Negative (Negative); CLARITY Clear (Clear); COLOR Yellow (Yellow); GLUCOSE 3+ (Negative); KETONE 2+ (Negative); LEUKO ESTERASE Negative (Negative); NITRITE Negative (Negative); PH 5.5 (4.5-8.0); SPECIFIC GRAVITY 1.025 (1.001-1.030)
[2021-05-23 10:19] LABS: BACTERIA 1+; HYALINE CAST TNTC
[2021-05-23] MEDS ORDERED: HYDROCODONE-AC1 EAC1 PO (14:37)
[2021-05-23] MEDS ORDERED: ZOFRAN4 MG PO (14:37)
== END 2021-05-23 14:50 | disposition home or self-care (01) ==
LOC: ED 08:28
PROVIDERS: Emergency Medicine
DX: R10.84 Generalized abdominal pain (principal); F17.200 Nicotine dependence, unspecified, uncomplicated; Z96.641 Presence of right artificial hip joint; Z79.899 Other long term (current) drug therapy; Z79.82 Long term (current) use of aspirin; Z98.890 Other specified postprocedural states

== ENCOUNTER → 2021-08-03 | Outpatient (CLI) | payer OTHER ==
[~2021-08-03] MED LIST changes: +HYDROCODONE-AC1 EAC1 PO; +ZOFRAN4 MG PO
== END | disposition home or self-care (01) ==
LOC: ORTHO 00:14
PROVIDERS: ATTEND Orthopaedic Surgery
DX: S72.031D Displaced midcervical fracture of right femur, subsequent encounter for closed fracture with routine healing (principal); X58.XXXD Exposure to other specified factors, subsequent encounter

== ENCOUNTER 2021-09-05 20:28 | Emergency (ER) | payer OTHER | END 2021-09-05 22:00 | disposition left against medical advice (07) | LOC: ED 20:28 → EDBD 20:35 → ED 20:35 | DX: R56.9 Unspecified convulsions (principal); I10 Essential (primary) hypertension; Z53.21 Procedure and treatment not carried out due to patient leaving prior to being seen by health care provider ==

== ENCOUNTER 2021-09-05 20:36 | Inpatient (IN) | payer OTHER ==
[2021-09-05] VITALS (7 sets, daily range): BP systolic 100–171; BP diastolic 49–85
[~2021-09-05] VITALS: Ht 182.8 cm; Wt 107.0 kg
[2021-09-05 20:56] LABS: BASO % 0.4 % (0.0-1.0)
[2021-09-05 21:10] LABS: ALBUMIN 3.6 gm/dl (3.1-4.5); CREATININE 1.9 mg/dL (0.70-1.30); POTASSIUM 4.3 mmol/L (3.5-5.1); TOTAL PROTEIN 7.8 gm/dL (6.4-8.2)
[2021-09-05 21:27] LABS: LYMPH # 1.4 10*3/uL (1.3-4.4); LYMPH % 24.8 % (27.0-41.0); MEAN CELL VOLUME 94.7 fl (80.0-94.0); MEAN CORPUSCULAR HGB 30.8 pg (27.0-31.0); MEAN CORPUSCULAR HGB CONC 32.5 g/dl (33.0-37.0); MEAN PLATELET VOLUME 11.1 fl (9.6-12.3); MONO # 0.4 10*3/uL (0.1-1.0); MONO % 7.4 % (3.0-9.0); NEUT # 3.6 10*3/uL (2.3-7.9); NEUT % 66.7 % (47.0-73.0); PLATELET COUNT AUTOMATED 171 10*3/uL (130-400); RED BLOOD COUNT 5.07 10*6/uL (4.50-5.90); RED CELL DISTRI WIDTH 13.8 % (0-14.5); WHITE BLOOD COUNT 5.4 10*3/uL (4.8-10.8)
[2021-09-05 21:37] LABS: BILIRUBIN Negative (Negative); BLOOD 3+ (Negative); CLARITY Clear (Clear); COLOR Yellow (Yellow); GLUCOSE 3+ (Negative); KETONE 2+ (Negative); LEUKO ESTERASE Negative (Negative); NITRITE Negative (Negative); UROBILINOGEN 0.2 E.U./dl (0.0-1.0)
[2021-09-05 21:44] LABS: BACTERIA 2+; EPITHELIAL CELLS 0-2; RBC TNTC rbc/hpf (0-2); WBC 0-2 wbc/hpf (0-5)
[2021-09-06] VITALS (7 sets, daily range): BP systolic 86–115; BP diastolic 48–66
[2021-09-06 17:28] LABS: ALBUMIN 3.1 gm/dl (3.1-4.5); CREATININE 2.62 mg/dL (0.70-1.30); POTASSIUM 3.7 mmol/L (3.5-5.1); TOTAL PROTEIN 6.7 gm/dL (6.4-8.2)
[2021-09-07] VITALS: BP 89/56
[2021-09-07 04:00] VITALS: BP 98/48
[2021-09-07 06:26] LABS: POTASSIUM 3.7 mmol/L (3.5-5.1)
[2021-09-07 06:30] LABS: BASO % 0.2 % (0.0-1.0); EOS % 0.2 % (1.0-4.0); HEMATOCRIT 35.9 % (42.0-52.0); LYMPH # 1.4 10*3/uL (1.3-4.4); LYMPH % 34.9 % (27.0-41.0); MEAN CELL VOLUME 94.2 fl (80.0-94.0); MEAN CORPUSCULAR HGB CONC 32.9 g/dl (33.0-37.0); MEAN PLATELET VOLUME 11.3 fl (9.6-12.3); MONO # 0.5 10*3/uL (0.1-1.0); MONO % 12.3 % (3.0-9.0); NEUT # 2.1 10*3/uL (2.3-7.9); NEUT % 52.2 % (47.0-73.0); PLATELET COUNT AUTOMATED 125 10*3/uL (130-400); RED BLOOD COUNT 3.81 10*6/uL (4.50-5.90); RED CELL DISTRI WIDTH 14.5 % (0-14.5); WHITE BLOOD COUNT 4.1 10*3/uL (4.8-10.8)
[2021-09-07 06:37] LABS: ALBUMIN 2.8 gm/dl (3.1-4.5); CREATININE 2.63 mg/dL (0.70-1.30); TOTAL PROTEIN 6.1 gm/dL (6.4-8.2)
[2021-09-07 08:00] VITALS: BP 107/48
[2021-09-07 12:00] VITALS: BP 115/61
[2021-09-07 16:00] VITALS: BP 133/92
[2021-09-07 20:00] VITALS: BP 120/69
[2021-09-08] VITALS (8 sets, daily range): BP systolic 107–193; BP diastolic 47–94
[2021-09-08 06:59] LABS: MEAN CORPUSCULAR HGB CONC 33.8 g/dl (33.0-37.0)
[2021-09-08 07:05] LABS: BASO % 0.3 % (0.0-1.0); EOS % 0.3 % (1.0-4.0); LYMPH # 0.8 10*3/uL (1.3-4.4); LYMPH % 24.8 % (27.0-41.0); MEAN CORPUSCULAR HGB 30.8 pg (27.0-31.0); MEAN PLATELET VOLUME 11.4 fl (9.6-12.3); MONO # 0.5 10*3/uL (0.1-1.0); MONO % 14.2 % (3.0-9.0); NEUT % 60.1 % (47.0-73.0); RED BLOOD COUNT 4.29 10*6/uL (4.50-5.90); RED CELL DISTRI WIDTH 14.2 % (0-14.5); WHITE BLOOD COUNT 3.3 10*3/uL (4.8-10.8)
[2021-09-08 07:06] LABS: ALBUMIN 3.3 gm/dl (3.1-4.5); ALKALINE PHOSPHATASE 87 U/L (45-117); CHLORIDE 105 mmol/L (98-107); CREATININE 1.43 mg/dL (0.70-1.30); POTASSIUM 4.1 mmol/L (3.5-5.1); SGOT/AST 28 IU/L (3-35); SGPT/ALT 19 U/L (12-78); SODIUM 135 mmol/L (136-145); TOTAL PROTEIN 6.9 gm/dL (6.4-8.2)
[2021-09-08 07:07] LABS: BUN 27 mg/dl (7-24)
[2021-09-08 07:54] LABS: PLATELET COUNT AUTOMATED 112 10*3/uL (130-400)
[2021-09-08 07:55] LABS: MEAN CELL VOLUME 90.9 fl (80.0-94.0)
[2021-09-08 08:07] LABS: CREATININE,URINE 241.2 mg/dL (Not Estab.)
[2021-09-08 08:13] LABS: PLATELET SUFFICIENCY LOW (NORMAL); TOTAL CELLS COUNTED 100 #CELLS
[2021-09-09] VITALS: BP 126/50
[2021-09-09 06:13] LABS: ALBUMIN 2.9 gm/dl (3.1-4.5); BUN 27 mg/dl (7-24); CHLORIDE 106 mmol/L (98-107); POTASSIUM 4.2 mmol/L (3.5-5.1); SODIUM 137 mmol/L (136-145)
[2021-09-09 06:16] LABS: ALKALINE PHOSPHATASE 73 U/L (45-117); CREATININE 1.27 mg/dL (0.70-1.30); SGOT/AST 21 IU/L (3-35); SGPT/ALT 18 U/L (12-78); TOTAL PROTEIN 6.3 gm/dL (6.4-8.2)
[2021-09-09 06:34] LABS: HEMATOCRIT 35.2 % (42.0-52.0); LYMPH # 1.3 10*3/uL (1.3-4.4); LYMPH % 39.4 % (27.0-41.0); MEAN CELL VOLUME 92.4 fl (80.0-94.0); MEAN CORPUSCULAR HGB 30.4 pg (27.0-31.0); MEAN PLATELET VOLUME 10.8 fl (9.6-12.3); MONO # 0.5 10*3/uL (0.1-1.0); MONO % 16.6 % (3.0-9.0); NEUT # 1.4 10*3/uL (2.3-7.9); NEUT % 43.7 % (47.0-73.0); PLATELET COUNT AUTOMATED 112 10*3/uL (130-400); RED BLOOD COUNT 3.81 10*6/uL (4.50-5.90); RED CELL DISTRI WIDTH 14.2 % (0-14.5); WHITE BLOOD COUNT 3.2 10*3/uL (4.8-10.8)
[2021-09-09 08:00] VITALS: BP 128/65
[2021-09-09 12:00] VITALS: BP 132/56
[2021-09-09 16:00] VITALS: BP 142/69
[2021-09-09 20:00] VITALS: BP 122/66
[2021-09-10] VITALS: BP 128/76
[2021-09-10 07:40] VITALS: BP 140/78
[2021-09-10 08:00] VITALS: BP 118/46
[2021-09-10 12:00] VITALS: BP 123/48
[2021-09-10 16:00] VITALS: BP 121/69
[2021-09-10 20:00] VITALS: BP 155/67
[2021-09-11] VITALS: BP 123/50
[2021-09-11 07:21] LABS: BASO % 0.2 % (0.0-1.0); EOS % 0.2 % (1.0-4.0); LYMPH # 2.2 10*3/uL (1.3-4.4); LYMPH % 37.9 % (27.0-41.0); MEAN CELL VOLUME 94.1 fl (80.0-94.0); MEAN CORPUSCULAR HGB 30.4 pg (27.0-31.0); MEAN CORPUSCULAR HGB CONC 32.3 g/dl (33.0-37.0); MEAN PLATELET VOLUME 11.2 fl (9.6-12.3); MONO # 0.6 10*3/uL (0.1-1.0); MONO % 10.5 % (3.0-9.0); NEUT # 2.9 10*3/uL (2.3-7.9); NEUT % 50.8 % (47.0-73.0); PLATELET COUNT AUTOMATED 132 10*3/uL (130-400); RED BLOOD COUNT 3.72 10*6/uL (4.50-5.90); RED CELL DISTRI WIDTH 14.1 % (0-14.5); WHITE BLOOD COUNT 5.7 10*3/uL (4.8-10.8)
[2021-09-11 08:00] VITALS: BP 139/52
[2021-09-11 12:00] VITALS: BP 132/65
[2021-09-11] MEDS ORDERED: DECADRON6 M1 PO (15:01)
[2021-09-11] MEDS ORDERED: AMLODIPINE BESYL5 MG PO (15:04)
[2021-09-11] MEDS ORDERED: LEVETIRACETAM500 M3 PO (15:04)
== END 2021-09-11 16:34 | disposition home or self-care (01) | DRG 137 ==
LOC: ED 20:36 → EDHOLD 09-06 01:15 → 4E 09-06 01:15
PROVIDERS: Internal Medicine; Internal Medicine Nephrology; ADMIT Internal Medicine; ATTEND Internal Medicine
PROC: XW033E5 Introduction of Remdesivir Anti-infective into Peripheral Vein, Percutaneous Approach, New Technology Group 5 (ICD-10-PCS; principal; 2021-09-07)
DX: U07.1 COVID-19 (principal); N17.0 Acute kidney failure with tubular necrosis; E11.10 Type 2 diabetes mellitus with ketoacidosis without coma; E44.1 Mild protein-calorie malnutrition; Z68.32 Body mass index [BMI] 32.0-32.9, adult; M10.9 Gout, unspecified; R56.9 Unspecified convulsions; E11.42 Type 2 diabetes mellitus with diabetic polyneuropathy; R09.02 Hypoxemia; E87.8 Other disorders of electrolyte and fluid balance, not elsewhere classified; N18.31 Chronic kidney disease, stage 3a; Z82.49 Family history of ischemic heart disease and other diseases of the circulatory system; Z79.82 Long term (current) use of aspirin; Z79.1 Long term (current) use of non-steroidal anti-inflammatories (NSAID); Z79.899 Other long term (current) drug therapy; E11.22 Type 2 diabetes mellitus with diabetic chronic kidney disease; N18.4 Chronic kidney disease, stage 4 (severe)

== ENCOUNTER → 2022-01-04 | Outpatient (CLI) | payer OTHER ==
[~2022-01-04] MED LIST changes: +AMLODIPINE BESYL5 MG PO; +DECADRON6 M1 PO; +LEVETIRACETAM500 M3 PO
== END | disposition home or self-care (01) ==
LOC: ORTHO 00:13
PROVIDERS: ATTEND Orthopaedic Surgery
DX: S72.031D Displaced midcervical fracture of right femur, subsequent encounter for closed fracture with routine healing (principal); X58.XXXD Exposure to other specified factors, subsequent encounter

== ENCOUNTER → 2022-04-26 | Outpatient (CLI) | payer OTHER | END | disposition home or self-care (01) | LOC: MRI 12:41 | PROVIDERS: ATTEND Orthopaedic Surgery | DX: S32.020A Wedge compression fracture of second lumbar vertebra, initial encounter for closed fracture (principal); M48.062 Spinal stenosis, lumbar region with neurogenic claudication; M25.78 Osteophyte, vertebrae; M47.816 Spondylosis without myelopathy or radiculopathy, lumbar region; X58.XXXA Exposure to other specified factors, initial encounter; Y93.89 Activity, other specified; Y92.89 Other specified places as the place of occurrence of the external cause; Y99.8 Other external cause status ==

== ENCOUNTER → 2024-03-19 | Outpatient (CLI) | payer OTHER ==
[~2024-03-19] MED LIST changes: +ADV 500/50 PO; +AZITHROMYCIN500 M2 PO; +CITALOPRAM40 MG PO; +GLIMEPIRIDE4 M1 PO; +HORIZANT600 M1 PO; +KEPPRA1000 MG PO; +LANTUS SOL100 UNIT/1 SC; +MEDROL DOSEPAK4 MG PO; +TOPIRAMATE ER50 MG PO; +TRULICITY1.5 MG/0.5 SC
[2024-03-19 13:16] LABS: BASO # 0.1 10*3/uL (0.0-0.1); BASO % 0.7 % (0.0-1.0); EOS # 0.1 10*3/uL (0.0-0.4); EOS % 1.9 % (1.0-4.0); LYMPH % 27.1 % (27.0-41.0); MEAN CELL VOLUME 98.9 fl (80.0-94.0); MEAN CORPUSCULAR HGB 32.1 pg (27.0-31.0); MEAN CORPUSCULAR HGB CONC 32.4 g/dl (33.0-37.0); MEAN PLATELET VOLUME 10.1 fl (9.6-12.3); MONO # 0.4 10*3/uL (0.1-1.0); MONO % 5.8 % (3.0-9.0); NEUT # 4.7 10*3/uL (2.3-7.9); NEUT % 64.2 % (47.0-73.0); PLATELET COUNT AUTOMATED 174 10*3/uL (130-400); RED BLOOD COUNT 3.74 10*6/uL (4.50-5.90); RED CELL DISTRI WIDTH 13.7 % (0-14.5); WHITE BLOOD COUNT 7.2 10*3/uL (4.8-10.8)
[2024-03-19 13:37] LABS: URINE CREATININE RANDOM 316.64 mg/dL
[2024-03-19 13:42] LABS: ALKALINE PHOSPHATASE 94 U/L (46-116); BUN 12 mg/dl (9-23); CHLORIDE 111 mmol/L (98-107); CHOLESTEROL 136 mg/dL (<200); FREE T4 0.96 ng/dl (0.89-1.76); LDL CHOLESTEROL 75 mg/dL (9-159); POTASSIUM 4.1 mmol/L (3.4-5.1); SGPT/ALT 10 U/L (5-49); TOTAL PROTEIN 6.8 gm/dL (6.0-8.0); TRIGLYCERIDES 170 mg/dl (<150); URIC ACID 4.9 mg/dL (3.7-9.2); VITAMIN D, 25-HYDROXY 35.2 ng/mL (30-100)
== END ==
LOC: LAB 12:07
PROVIDERS: ATTEND Internal Medicine
DX: I49.3 Ventricular premature depolarization (principal); I10 Essential (primary) hypertension; E11.9 Type 2 diabetes mellitus without complications; M10.9 Gout, unspecified; M25.551 Pain in right hip

== ENCOUNTER → 2024-06-13 | Outpatient (CLI) | payer OTHER | END | disposition home or self-care (01) | LOC: RAD 12:37 | PROVIDERS: ATTEND Internal Medicine | DX: J44.1 Chronic obstructive pulmonary disease with (acute) exacerbation (principal); E11.9 Type 2 diabetes mellitus without complications; I10 Essential (primary) hypertension ==

== ENCOUNTER 2024-07-03 22:39 | Emergency (ER) | payer OTHER ==
[~2024-07-03] VITALS: Ht 182.8 cm; Wt 117.9 kg
[2024-07-03] MEDS ORDERED: Ondansetron Hydrochloride 4 MG TAB SL ONE (23:05)
[2024-07-04] MEDS ORDERED: Ketorolac Tromethamine 30 MG/ML VIAL IM ONE (00:15)
[2024-07-04] MEDS ORDERED: Ondansetron4 MG PO (00:24)
== END 2024-07-04 00:28 | disposition home or self-care (01) ==
LOC: ED 22:39
DX: R14.1 Gas pain (principal); B34.9 Viral infection, unspecified; E11.9 Type 2 diabetes mellitus without complications; I10 Essential (primary) hypertension; K21.9 Gastro-esophageal reflux disease without esophagitis; F17.200 Nicotine dependence, unspecified, uncomplicated; Z88.8 Allergy status to other drugs, medicaments and biological substances; Z98.890 Other specified postprocedural states; Z90.49 Acquired absence of other specified parts of digestive tract

== ENCOUNTER 2024-07-16 14:58 | Inpatient (IN) | payer OTHER, MEDICAID ==
[~2024-07-16] VITALS: Ht 182.8 cm; Wt 124.8 kg
[~2024-07-16 14:58] MED LIST changes: +Ondansetron4 MG PO
[2024-07-16 15:21] VITALS: BP 145/52
[2024-07-16] MEDS ORDERED: Tdap Vaccine 0.5 ML SYR (Adult Vaccine) IM ONE (15:35)
[2024-07-16 15:48] LABS: BASO % 0.5 % (0.0-1.0); EOS # 0.1 10*3/uL (0.0-0.4); EOS % 1.9 % (1.0-4.0); HEMATOCRIT 33.5 % (42.0-52.0); MEAN CORPUSCULAR HGB 31.6 pg (27.0-31.0); MEAN CORPUSCULAR HGB CONC 32.2 g/dl (33.0-37.0); MONO # 0.5 10*3/uL (0.1-1.0); MONO % 7.7 % (3.0-9.0); NEUT # 3.8 10*3/uL (2.3-7.9); NEUT % 58.9 % (47.0-73.0); PLATELET COUNT AUTOMATED 207 10*3/uL (130-400); RED BLOOD COUNT 3.42 10*6/uL (4.50-5.90); RED CELL DISTRI WIDTH 13.3 % (0-14.5); WHITE BLOOD COUNT 6.5 10*3/uL (4.8-10.8)
[2024-07-16 16:17] LABS: BUN 16 mg/dl (9-23); CHLORIDE 109 mmol/L (98-107); POTASSIUM 4.4 mmol/L (3.4-5.1)
[2024-07-16] MEDS ORDERED: MELOXICAM15 MG PO (16:19)
[2024-07-16] MEDS ORDERED: COLCHICINE0.6 M2 PO (16:20)
[2024-07-16] MEDS ORDERED: ASPIRIN REGIMEN81 M2 PO (16:21)
[2024-07-16] MEDS ORDERED: OZEMPIC0.25 MG/03 SQ (16:23)
[2024-07-16] MEDS ORDERED: Piperacillin Sodium/Tazobact 50 ML IV ONE (17:00)
[2024-07-16] MEDS ORDERED: Vancomycin Hydrochloride 250 ML IV ONE (17:00)
[2024-07-16 21:33] VITALS: BP 128/78
[2024-07-16] MEDS ORDERED: GABAPENTIN 600 MG TAB PO SCH (22:00)
[2024-07-16] MEDS ORDERED: LEVETIRACETAM 500 MG TAB PO SCH (22:00)
[2024-07-16] MEDS ORDERED: Insulin Glargine, Recombinan 1 UNIT/0.01 ML SC SCH (22:00)
[2024-07-16 23:00] VITALS: BP 144/81
[2024-07-17] MEDS ORDERED: Piperacillin Sodium/Tazobact 50 ML IV SCH
[2024-07-17] MEDS ORDERED: VANCOMYCIN/WATER FOR INJ (PEG) 300 ML IV SCH (04:00)
[2024-07-17] MEDS ORDERED: Pantoprazole Sodium 40 MG TAB PO SCH (06:00)
[2024-07-17 08:00] VITALS: BP 134/77
[2024-07-17] MEDS ORDERED: CARVEDILOL 12.5 MG TAB PO SCH (10:00)
[2024-07-17] MEDS ORDERED: TOPIRAMATE 25 MG TAB PO SCH (10:00)
[2024-07-17] MEDS ORDERED: CITALOPRAM 20 MG TAB PO SCH (10:00)
[2024-07-17] MEDS ORDERED: Meloxicam 15 MG TAB PO SCH (10:00)
[2024-07-17] MEDS ORDERED: ASPIRIN ENTERIC COATED 81 MG TAB PO SCH (10:00)
[2024-07-17] MEDS ORDERED: ALLOPURINOL 100 MG TAB PO SCH (10:00)
[2024-07-17] MEDS ORDERED: LISINOPRIL 2.5 MG TAB PO SCH (10:00)
[2024-07-17] MEDS ORDERED: ATORVASTATIN CALCIUM 10 MG TAB PO SCH (10:00)
[2024-07-17 12:00] VITALS: BP 134/65
[2024-07-17 16:00] VITALS: BP 119/80
[2024-07-17 20:00] VITALS: BP 107/51
[2024-07-18] VITALS (17 sets, daily range): BP systolic 112–162; BP diastolic 56–82
[2024-07-18] MEDS ORDERED: BUPIVACAINE 0.5% 30 ML IV ONE (08:30)
[2024-07-18] MEDS ORDERED: Vancomycin Hydrochloride 1,000 MG VIAL ONE (08:30)
[2024-07-18] MEDS ORDERED: HYDROmorphONE Hydrochloride 0.5 MG/0.5 ML SYRINGE IV ONE (12:05)
[2024-07-18] MEDS ORDERED: HYDROmorphONE Hydrochloride 0.5 MG/0.5 ML SYRINGE ONE (12:29)
[2024-07-18] MEDS ORDERED: Acetaminophen/Hydrocodone 5 MG/325 MG TABLET PO PRN (20:40)
[2024-07-19] VITALS: BP 124/69
[2024-07-19 08:00] VITALS: BP 128/66
[2024-07-19] MEDS ORDERED: IOHEXOL 350 MG/ML 100 ML VIAL IV ONE ×2 (09:10→11:37)
[2024-07-19] MEDS ORDERED: SODIUM CHLORIDE 0.9% 100 ML BAG IV ONE (09:10)
[2024-07-19 09:22] LABS: BASO % 0.6 % (0.0-1.0); EOS # 0.1 10*3/uL (0.0-0.4); HEMATOCRIT 32.5 % (42.0-52.0); MEAN CELL VOLUME 100.9 fl (80.0-94.0); MEAN CORPUSCULAR HGB CONC 31.7 g/dl (33.0-37.0); MEAN PLATELET VOLUME 9.6 fl (9.6-12.3); MONO # 0.4 10*3/uL (0.1-1.0); MONO % 6.2 % (3.0-9.0); NEUT # 4.7 10*3/uL (2.3-7.9); NEUT % 67.9 % (47.0-73.0); PLATELET COUNT AUTOMATED 195 10*3/uL (130-400); RED BLOOD COUNT 3.22 10*6/uL (4.50-5.90); RED CELL DISTRI WIDTH 13.2 % (0-14.5); WHITE BLOOD COUNT 6.9 10*3/uL (4.8-10.8)
[2024-07-19 09:57] LABS: ALKALINE PHOSPHATASE 78 U/L (46-116); BUN 10 mg/dl (9-23); CHLORIDE 113 mmol/L (98-107); POTASSIUM 4.1 mmol/L (3.4-5.1); TOTAL PROTEIN 6.7 gm/dL (6.0-8.0)
[2024-07-19 09:58] LABS: SGPT/ALT < 7 U/L (5-49)
[2024-07-19 10:06] LABS: ACID FAST SPEC PROCESSING Tissue Grinding (.)
[2024-07-19 10:06] LABS: ACID FAST SPEC PROCESSING Tissue Grinding (.)
[2024-07-19 10:06] LABS: ACID FAST SPEC PROCESSING Tissue Grinding (.)
[2024-07-19] MEDS ORDERED: SODIUM CHLORIDE 0.9% 100 ML IV ONE (11:37)
[2024-07-19 12:00] VITALS: BP 127/65
[2024-07-19 16:00] VITALS: BP 131/48
[2024-07-19 20:00] VITALS: BP 157/51
[2024-07-19] MEDS ORDERED: DALVANCE500 MG IV (22:39)
[2024-07-20] VITALS: BP 133/61
[2024-07-20 08:00] VITALS: BP 167/74
[2024-07-20] MEDS ORDERED: EMPAGLIFLOZIN 10 MG TABLET PO SCH (10:00)
[2024-07-20 12:00] VITALS: BP 144/65
[2024-07-20] MEDS ORDERED: Clopidogrel Hydrogen Sulfate 75 MG TAB PO ONE (12:15)
[2024-07-20 16:00] VITALS: BP 135/74
[2024-07-20 20:00] VITALS: BP 158/73
[2024-07-20] MEDS ORDERED: VANCOMYCIN/WATER FOR INJ (PEG) 300 ML IV SCH (22:00)
[2024-07-21] VITALS: BP 167/76
[2024-07-21 08:00] VITALS: BP 164/74
[2024-07-21] MEDS ORDERED: Clopidogrel Hydrogen Sulfate 75 MG TAB PO SCH (10:00)
[2024-07-21 12:00] VITALS: BP 124/65
[2024-07-21 16:00] VITALS: BP 151/61
[2024-07-21 20:00] VITALS: BP 157/63
[2024-07-22] VITALS: BP 144/64
[2024-07-22 08:00] VITALS: BP 150/67
== END 2024-07-22 14:14 | disposition home health service (06) | DRG 629 ==
LOC: ED 14:58 → EDHOLD 17:01 → 4E 17:01
PROVIDERS: Internal Medicine; Physician Assistant Medical; Podiatrist; ADMIT Internal Medicine; ATTEND Internal Medicine
PROC: 3E0234Z Introduction of Serum, Toxoid and Vaccine into Muscle, Percutaneous Approach (ICD-10-PCS; 2024-07-16)
PROC: 0QBN0ZX Excision of Right Metatarsal, Open Approach, Diagnostic (ICD-10-PCS; principal; 2024-07-18)
PROC: 0QBQ0ZX Excision of Right Toe Phalanx, Open Approach, Diagnostic (ICD-10-PCS; 2024-07-18)
DX: E11.69 Type 2 diabetes mellitus with other specified complication (principal); F33.9 Major depressive disorder, recurrent, unspecified; K22.10 Ulcer of esophagus without bleeding; M86.8X7 Other osteomyelitis, ankle and foot; E11.42 Type 2 diabetes mellitus with diabetic polyneuropathy; G40.909 Epilepsy, unspecified, not intractable, without status epilepticus; J44.9 Chronic obstructive pulmonary disease, unspecified; I12.9 Hypertensive chronic kidney disease with stage 1 through stage 4 chronic kidney disease, or unspecified chronic kidney disease; E11.22 Type 2 diabetes mellitus with diabetic chronic kidney disease; I25.10 Atherosclerotic heart disease of native coronary artery without angina pectoris; K29.70 Gastritis, unspecified, without bleeding; K21.9 Gastro-esophageal reflux disease without esophagitis; N18.31 Chronic kidney disease, stage 3a; F17.210 Nicotine dependence, cigarettes, uncomplicated; Z82.49 Family history of ischemic heart disease and other diseases of the circulatory system; Z88.8 Allergy status to other drugs, medicaments and biological substances; Z86.16 Personal history of COVID-19

== ENCOUNTER → 2024-07-30 | Outpatient (CLI) | payer OTHER, MEDICAID ==
[~2024-07-30] MED LIST changes: +ASPIRIN REGIMEN81 M2 PO; +COLCHICINE0.6 M2 PO; +DALVANCE500 MG IV; +MELOXICAM15 MG PO; +OZEMPIC0.25 MG/03 SQ
[2024-07-30 08:22] LABS: BASO # 0.1 10*3/uL (0.0-0.1); BASO % 0.8 % (0.0-1.0); EOS # 0.2 10*3/uL (0.0-0.4); EOS % 2.6 % (1.0-4.0); HEMATOCRIT 34.2 % (42.0-52.0); MEAN CELL VOLUME 99.7 fl (80.0-94.0); MEAN CORPUSCULAR HGB 31.8 pg (27.0-31.0); MEAN CORPUSCULAR HGB CONC 31.9 g/dl (33.0-37.0); MEAN PLATELET VOLUME 10.4 fl (9.6-12.3); MONO # 0.5 10*3/uL (0.1-1.0); MONO % 8.7 % (3.0-9.0); NEUT # 3.6 10*3/uL (2.3-7.9); NEUT % 57.7 % (47.0-73.0); PLATELET COUNT AUTOMATED 205 10*3/uL (130-400); RED BLOOD COUNT 3.43 10*6/uL (4.50-5.90); WHITE BLOOD COUNT 6.2 10*3/uL (4.8-10.8)
[2024-07-30 09:06] LABS: ALKALINE PHOSPHATASE 116 U/L (46-116); BUN 12 mg/dl (9-23); CHLORIDE 110 mmol/L (98-107); POTASSIUM 4.4 mmol/L (3.4-5.1); SGPT/ALT 13 U/L (5-49); TOTAL PROTEIN 6.6 gm/dL (6.0-8.0)
== END | disposition home or self-care (01) ==
LOC: LAB 07:46
PROVIDERS: ATTEND Internal Medicine
DX: M86.9 Osteomyelitis, unspecified (principal)

== ENCOUNTER → 2024-12-09 | Outpatient (CLI) | payer OTHER, MEDICAID ==
[2024-12-09 12:42] LABS: BASO # 0.1 10*3/uL (0.0-0.1); BASO % 0.6 % (0.0-1.0); EOS # 0.1 10*3/uL (0.0-0.4); EOS % 1.4 % (1.0-4.0); HEMATOCRIT 36.1 % (42.0-52.0); MEAN CORPUSCULAR HGB 31.3 pg (27.0-31.0); MEAN PLATELET VOLUME 9.9 fl (9.6-12.3); MONO # 0.6 10*3/uL (0.1-1.0); MONO % 7.2 % (3.0-9.0); NEUT # 4.9 10*3/uL (2.3-7.9); NEUT % 61.4 % (47.0-73.0); PLATELET COUNT AUTOMATED 169 10*3/uL (130-400); RED CELL DISTRI WIDTH 13.4 % (0-14.5); WHITE BLOOD COUNT 7.9 10*3/uL (4.8-10.8)
[2024-12-09 13:12] LABS: ALKALINE PHOSPHATASE 107 U/L (46-116); BUN 13 mg/dl (9-23); CHLORIDE 105 mmol/L (98-107); POTASSIUM 4.5 mmol/L (3.4-5.1); SGPT/ALT 14 U/L (5-49); TOTAL PROTEIN 6.6 gm/dL (6.0-8.0)
== END | disposition home or self-care (01) ==
LOC: LAB 12:17
PROVIDERS: ATTEND Internal Medicine
DX: Z01.818 Encounter for other preprocedural examination (principal); E11.40 Type 2 diabetes mellitus with diabetic neuropathy, unspecified; J43.9 Emphysema, unspecified